=== PATIENT | female | born 1950 | race Caucasian/White ===

== ENCOUNTER → 2020-05-03 10:26 | Outpatient (CLI) | payer MEDICARE, SELFPAY ==
--- NOTE | ~2020-05-03 | XR_ITS ---
EXAMINATION: XR chest 2V EXAM DATE: 05/03/2020 10:56 INDICATION: COPD . TECHNIQUE: Frontal and lateral projections of the chest obtained and reviewed. Comparison is made to prior examination from 01/14/2019. FINDINGS: Right upper lobe, left lower lobe calcified granulomata unchanged. Moderate chronic hyperi nflation. The lungs are otherwise clear. There are no pleural effusions. The cardiomediastinal silh ouette is within normal limits. There is no pneumothorax suspected. The bones and soft tissues are unremarkable. There is aortic arteriosclerosis. IMPRESSION: 1. No acute cardiopulmonary findings. 2. Hyperinflation. Reviewed, dictated and finalized at location B. NED GLASS PAINTER
== END ==
PROVIDERS: PCP Family Medicine Adolescent Medicine; Visit Provider Family Medicine Adolescent Medicine
DX: J44.9 Chronic obstructive pulmonary disease, unspecified (principal); R91.8 Other nonspecific abnormal finding of lung field
CPT/HCPCS: 71046

== ENCOUNTER → 2021-05-15 09:48 | Outpatient (CLI) | payer MEDICARE, SELFPAY ==
--- NOTE | ~2021-05-15 | CT_ITS ---
EXAMINATION: CT lung screening EXAM DATE: 05/15/2021 10:05 INDICATION: Low dose CT lung cancer screening. TECHNIQUE: Spiral low dose CT of the chest without contrast. Axial, coronal and sagittal images were reviewed. The dose-length product (DLP) for this examination was 54.52 mGy-cm. The exposure was ta ilored according to patient size (auto mA exposure control), and iterative reconstruction (ASIR) was used as additional dose reduction technique. There is no prior study for comparison. FINDINGS: Mild emphysema. Right upper lobe and left lower lobe large calcified granulomata. 3 mm nod ule along the left major fissure, axial image 63. There are no pleural or pericardial effusions. T racheobronchial tree is patent. There is no mediastinal, hilar or axillary lymphadenopathy. There is no pneumothorax. Heart normal in size. There is mild coronary arterial calcification, arteria l sclerosis. Upper abdomen is unremarkable. There is mild thoracic spondylosis without osteoblasti c or osteolytic lesions identified. IMPRESSION: Lung-RADS category 2, benign appearance or behavior (<1% chance of malignancy); recommend continued LDCT screening in 1 year. Reviewed, dictated and finalized at location B. TION ENGINEER
== END ==
PROVIDERS: PCP Family Medicine Adolescent Medicine; Visit Provider Family Medicine Adolescent Medicine
DX: Z12.2 Encounter for screening for malignant neoplasm of respiratory organs (principal); Z87.891 Personal history of nicotine dependence
CPT/HCPCS: 71271

== ENCOUNTER → 2021-08-21 13:17 | Outpatient (CLI) | payer MEDICARE, SELFPAY ==
--- NOTE | ~2021-08-21 | XR_ITS ---
EXAMINATION: XR ankle RT min 3V EXAM DATE: 08/21/2021 13:46 INDICATION: Right ankle pain . TECHNIQUE: Right ankle frontal, lateral and oblique projections obtained and reviewed. There is no p rior study for comparison. FINDINGS: The right ankle mortise appears intact. There are no acute fractures or dislocations iden tified. There is no subcutaneous gas. The soft tissue is unremarkable. There are no radiopaque fo reign bodies. IMPRESSION: 1. Unremarkable XR ankle RT min 3V exam. Reviewed, dictated and finalized at location G. X PROGRAMMER
--- NOTE | ~2021-08-21 | DEXA_ITS ---
Bone Density Report Name: ANUJA TAMEZ Age: 71 Sex: Female Ethnicity: White Date of : 1950 Indication: osteopenia; height loss; postmenopausal Referring Provider: NORMA MONTENEGRO Study: Bone densitometry was performed. Exam Date: August 21, 2021 Accession number: [id number] Bone Density: Region BMD T-score Z-score Classification AP Spine (L1-L4) 0.833 -1.9 0.2 Osteopenia Femoral Neck (Left) 0.612 -2.1 -0.3 Osteopenia Total Hip (Left) 0.745 -1.6 0.0 Osteopenia Femoral Neck (Right) 0.641 -1.9 0.0 Osteopenia Total Hip (Right) 0.773 -1.4 0.2 Osteopenia Total Hip Mean 0.759 -1.5 0.1 Osteopenia World Health Organization criteria for BMD impression classify patients as: Normal (T-score at or above -1.0), Osteopenia (T-score between -1.0 and -2.5), or Osteoporosis (T-score at or below -2.5). 10-year Fracture Risk(1): Major Osteoporotic Fracture 13% Hip Fracture 4.2% Reported Risk Factors: [place] (), Neck BMD=0.612, BMI=27.5, smoking (1) FRAX(R) Version 3.08. Fracture probability calculated for an untreated patient. Fracture probability may be lower if the patient has received treatment. Previous Exams: Region Exam Age BMD T-score BMD Change BMD Change Date g/cm2 vs Baseline vs Previous AP Spine(L1-L4) 08/21/2021 71 0.833 -1.9 0.035* 0.010 01/14/2019 68 0.823 -2.0 0.025* 0.023 08/29/2015 65 0.800 -2.2 0.002 0.002 06/17/2013 62 0.798 -2.3 Total Hip(Left) 08/21/2021 71 0.745 -1.6 -0.066* -0.016 01/14/2019 68 0.761 -1.5 -0.050* -0.013 08/29/2015 65 0.775 -1.4 -0.037* -0.037* 06/17/2013 62 0.812 -1.1 Total Hip(Right) 08/21/2021 71 0.773 -1.4 -0.088* -0.010 01/14/2019 68 0.784 -1.3 -0.078* -0.018 08/29/2015 65 0.802 -1.1 -0.060* -0.060* 06/17/2013 62 0.861 -0.7 *Denotes significance at 95% confidence level, LSC for AP Spine = 0.022 g/cm2, LSC for Total Hip = 0.027 g/cm2 Clinical Information Provided by Patient: Smokes Patient maximum height was 63 Menopause Age: 47 No regular weight bearing exercise Drinks caffeinated beverages Onset of menses at age 13 Number of children 1 Impression: The patient has low bone mass, based on the Left Femoral Neck T-score. The patient has an estimated ten-year ris
--- NOTE | ~2021-08-21 | MM_ITS ---
EXAMINATION: MM screening [facility] BI w branden HISTORY: Screening mammogram TECHNIQUE: Craniocaudal and mediolateral oblique 3-D tomosynthesis images were obtained and synthetic 2-D images were generated. CAD analysis was submitted and interpreted. COMPARISON: 01/24/2019 diagnostic left mammogram and left complete breast ultrasound examination 01/14/2019, 11/26/2016 bilateral screening mammogram examinations BREAST PARENCHYMAL COMPOSITION: The breasts are heterogeneously dense, which may obscure small masses . FINDINGS: Right breast: Possible small stellate mass in the outer mid right breast. Diagnostic right mammogram is recommended , with ultrasound if required. Left breast: There is no evidence of suspicious mass, calcification, or architectural distortion to s uggest malignancy in either breast. There has been no suspicious interval change. IMPRESSION: 1. Possible small stellate mass in the outer mid right breast 2. Diagnostic right mammogram is recommended BI-RADS Category 0: Incomplete: Needs additional imaging evaluation. Reviewed, dictated and finalized at location A. 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
== END ==
PROVIDERS: PCP Family Medicine Adolescent Medicine; Visit Provider Family Medicine Adolescent Medicine
DX: Z12.31 Encounter for screening mammogram for malignant neoplasm of breast (principal); Z78.0 Asymptomatic menopausal state; M25.571 Pain in right ankle and joints of right foot; R92.8 Other abnormal and inconclusive findings on diagnostic imaging of breast; M85.89 Other specified disorders of bone density and structure, multiple sites
CPT/HCPCS: 73610; 77063; 77067; 77080

== ENCOUNTER → 2021-09-17 09:11 | Outpatient (CLI) | payer MEDICARE, SELFPAY ==
--- NOTE | ~2021-09-17 | MMUS_ITS ---
EXAMINATION: MM diagnostic [facility] RT w branden, US breast RT limited HISTORY: Possible small stellate mass reported in outer mid right breast on August 21, 2021 screeni ng mammogram examination TECHNIQUE: Additional 3-D tomosynthesis images of the right breast were performed and synthetic 2-D i mages were generated. CAD analysis was submitted and interpreted. High resolution upper outer and low er-outer quadrant right breast ultrasound was performed. COMPARISON: August 21, 2021 bilateral screening mammogram FINDINGS: MAMMOGRAPHIC FINDINGS: No suspicious mass, architectural distortion, malignant calcification, skin thickening or retraction is evident. ULTRASOUND: No suspicious mass or shadowing is evident. IMPRESSION: 1. No mammographic evidence of malignancy 2. Routine mammographic screening is recommended BI-RADS Category 1: Negative Reviewed, dictated and finalized at location A. IMPRESSION: 1. No mammographic evidence of malignancy 2. Routine mammographic screening is recommended BI-RADS Category 1: Negative
== END ==
PROVIDERS: PCP Family Medicine Adolescent Medicine; Visit Provider Family Medicine Adolescent Medicine
DX: R92.8 Other abnormal and inconclusive findings on diagnostic imaging of breast (principal)
CPT/HCPCS: 76642; 77061; 77065; G0279

== ENCOUNTER → 2023-01-30 11:54 | Outpatient (CLI) | payer MEDICARE, SELFPAY ==
--- NOTE | ~2023-01-30 | XR_ITS ---
Right Shoulder Technique: AP and axillary views were obtained. Clinical History: Pain Findings: No fracture or dislocation is seen. Osseous alignment is anatomic. The glenohumeral and acr omioclavicular joint spaces are preserved. Soft tissues are unremarkable. Impression: Unremarkable right shoulder radiographs. Reviewed, dictated and finalized at [facility]. Impression: Unremarkable right shoulder radiographs.
--- NOTE | ~2023-01-30 | XR_ITS ---
Left Shoulder Technique: AP and axillary views were obtained. Clinical History: Pain Findings: No fracture or dislocation is seen. Osseous alignment is anatomic. The glenohumeral and acr omioclavicular joint spaces are preserved. Soft tissues are unremarkable. Impression: Unremarkable left shoulder radiographs. Reviewed, dictated and finalized at [facility]. Impression: Unremarkable left shoulder radiographs.
== END ==
PROVIDERS: PCP Family Medicine Adolescent Medicine; Visit Provider Family Medicine Adolescent Medicine
DX: M25.512 Pain in left shoulder (principal); M25.511 Pain in right shoulder
CPT/HCPCS: 73030

== ENCOUNTER → 2023-02-06 11:23 | Outpatient (CLI) | payer MEDICARE, SELFPAY ==
--- NOTE | ~2023-02-06 | MM_ITS ---
EXAMINATION: MM screening [place] BI w branden HISTORY: Screening mammogram TECHNIQUE: Craniocaudal and mediolateral oblique 3-D tomosynthesis images were obtained and synthetic 2-D images were generated. CAD analysis was submitted and interpreted. COMPARISON: 09/17/2021, 08/21/2021, 01/24/2019, 01/14/2019 BREAST PARENCHYMAL COMPOSITION: The breasts are heterogeneously dense, which may obscure small masses . FINDINGS: No suspicious mass, calcification, or architectural distortion are identified in either shade ast to suggest malignancy. There has been no suspicious interval change. IMPRESSION: 1. No mammographic evidence of malignancy. 2. Recommend routine screening mammography in one year. BI-RADS Category 1: Negative Reviewed, dictated and finalized at location A.
== END ==
PROVIDERS: PCP Family Medicine Adolescent Medicine; Visit Provider Family Medicine Adolescent Medicine
DX: Z12.31 Encounter for screening mammogram for malignant neoplasm of breast (principal)
CPT/HCPCS: 77063; 77067

== ENCOUNTER 2023-12-07 11:46 | Outpatient (CLI) | payer MEDICARE, SELFPAY ==
--- NOTE | ~2023-12-07 | CT_ITS ---
CT Scan of the Chest without Contrast: Clinical Indication: Lung cancer screening, nicotine dependence Technique: Contiguous sections were acquired throughout the chest without intravenous contrast. Dose reduction technique was used on this scan by utilizing automated exposure control and iterative recon struction technique. The dose-length product (DLP) was 54.32 mGy-cm. COMPARISON: 05/15/2021 Findings: There is no evidence of any significant mediastinal, hilar or axillary lymphadenopathy. The mediastin al soft tissues appear normal. There is no evidence of pleural or pericardial effusion. Large calcified right upper lobe granuloma present. There is a new 1.4 cm spiculated nodule in the le ft upper lobe (axial image 34). Additional calcified left lower lobe granuloma is unchanged. Mild emp hysema. Images through the upper abdomen reveal no abnormalities. Impression: Lung RADS 4B: Very suspicious. 1.4 cm spiculated left upper lobe pulmonary nodule. Recommend tissue s ampling to establish histologic diagnosis, as neoplasm is suspected. Case discussed with Dr. Patterson at the time of this reading. Reviewed, dictated and finalized at location . Impression: Lung RADS 4B: Very suspicious. 1.4 cm spiculated left upper lobe pulmonary nodu le. Recommend tissue sampling to establish histologic diagnosis, as neoplasm is suspected. Case discussed with Dr. Patterson at the time of this reading.
== END 2023-12-07 11:47 ==
LOC: MICIMG 11:47
PROVIDERS: PCP Family Medicine Adolescent Medicine; Visit Provider Family Medicine Adolescent Medicine
DX: Z12.2 Encounter for screening for malignant neoplasm of respiratory organs (principal); Z87.891 Personal history of nicotine dependence; R91.8 Other nonspecific abnormal finding of lung field
CPT/HCPCS: 71271

== ENCOUNTER 2023-12-24 09:06 | Outpatient (CLI) | payer MEDICARE, SELFPAY ==
[2023-12-24] VITALS (11 sets, daily range): BP systolic 125–166; BP diastolic 62–90; PULSE 63–84; RESP 14–20; TEMP 36.5; O2SAT 95–100
--- NOTE | ~2023-12-24 | XR_ITS ---
EXAMINATION: XR chest 1V DATE: 12/24/2023 11:51 INDICATION: Left lung nodule status post percutaneous biopsy. TECHNIQUE: A single frontal view of the chest was obtained. COMPARISON: Chest 2 views 05/03/2020 FINDINGS: Calcified pulmonary nodules are consistent with old granulomatous disease. There are airspa ce opacities in left upper lobe. There is a small left pneumothorax. No pleural effusion. The heart s ize is normal. IMPRESSION: 1. Airspace opacities in left lung upper lobe, consistent with postbiopsy hemorrhage. 2. Small left pneumothorax. Reviewed, dictated and finalized at location A. IMPRESSION: 1. Airspace opacities in left lung upper lobe, consistent with postbiopsy hemor rhage. 2. Small left pneumothorax.
--- NOTE | ~2023-12-24 | CT_ITS ---
EXAMINATION: CT biopsy lung w/imaging DATE: 12/24/2023 12:05 INDICATION: Left lung upper lobe nodule. TECHNIQUE: The procedure including the risks, benefits, and alternatives and possibility of chest tub e placement were discussed with the patient. Risks discussed included infection, hemorrhage, approxim ately 1/3 risk of pneumothorax, approximately 1/10 risk of pneumothorax severe enough to warrant ches t tube placement, and rarely . The patient understood the risks and agreed to proceed. The patie nt was placed supine. The skin overlying the left lung was prepped and draped in sterile fashion. A nesthetic was administered with 1% lidocaine subcutaneously. A 19 gauge outer needle was advanced un sherrie CT guidance to the lesion of interest. A 20 gauge core biopsy needle was then used to obtain 2 co re biopsy specimens. The needle was removed and the entry site was cleaned and dressed. The mA was ad justed according to patient size. Iterative reconstruction technique was employed. The dose-length pr oduct was 212.29 mGy-cm. There were no immediate complications. FINDINGS: CT images demonstrate the outer needle tip adjacent to a 14 mm nodule in left lung upper lo be. IMPRESSION: 1. CT-guided core needle biopsy of a 14 mm nodule in left lung upper lobe. Reviewed, dictated and finalized at location A.
--- NOTE | ~2023-12-24 | XR_ITS ---
EXAMINATION: XR chest 1V portable DATE: 12/24/2023 14:45 INDICATION: Left lung nodule status post percutaneous biopsy. TECHNIQUE: A single frontal view of the chest was obtained. COMPARISON: Chest single view at 12:47 PM FINDINGS: There are airspace opacities in left upper lobe. Calcified pulmonary nodules are consistent with old granulomatous disease. No pleural effusion. There is a small left pneumothorax. The heart s ize is normal. IMPRESSION: 1. Stable airspace opacities in left lung upper lobe, consistent with postbiopsy hemorrhage. 2. Worsened small left pneumothorax. Reviewed, dictated and finalized at location A. IMPRESSION: 1. Stable airspace opacities in left lung upper lobe, consistent with postbiops y hemorrhage. 2. Worsened small left pneumothorax.
--- NOTE | ~2023-12-24 | XR_ITS ---
EXAMINATION: XR chest 1V portable DATE: 12/24/2023 12:50 INDICATION: Left lung nodule status post 3 days biopsy. TECHNIQUE: A single frontal view of the chest was obtained. COMPARISON: Chest single view at 11:48 AM FINDINGS: Calcified pulmonary nodules are consistent with old granulomatous disease. There are stable airspace opacities in left upper lobe. There is a small left pneumothorax. No pleural effusion. The heart size is normal. IMPRESSION: 1. Stable airspace opacities in left lung upper lobe, consistent with postbiopsy hemorrhage. 2. Worsened small left pneumothorax. Reviewed, dictated and finalized at location A. IMPRESSION: 1. Stable airspace opacities in left lung upper lobe, consistent with postbiops y hemorrhage. 2. Worsened small left pneumothorax.
[2023-12-24 09:48] LABS: Mean Platelet Volume 10.6 fl (7.4-10.4); Platelet Count Result 188 k/mm3 (150-375)
[2023-12-24 10:00] LABS: Prothrombin Time 13.3 Seconds (11.1-14.7)
--- NOTE | 2023-12-24 15:03 | SUR.PHASEII ---
Dr. Pandya at bedside. Per MD, patient okay to d/c.
== END 2023-12-24 15:34 | disposition home or self-care (01) ==
PROVIDERS: PCP Family Medicine Adolescent Medicine; Visit Provider Radiology Diagnostic Radiology
PROC: BB24ZZZ Computerized Tomography (CT Scan) of Bilateral Lungs (ICD-10-PCS; CPT 32408; principal; 2023-12-24 11:00)
DX: Z01.818 Encounter for other preprocedural examination (principal); C34.92 Malignant neoplasm of unspecified part of left bronchus or lung; R91.8 Other nonspecific abnormal finding of lung field; J93.9 Pneumothorax, unspecified
CPT/HCPCS: 32408; 36415; 71045; 85049; 85610; 88305; 88342

== ENCOUNTER 2024-07-28 10:10 | Outpatient (CLI) | payer MEDICARE, SELFPAY ==
--- NOTE | ~2024-07-28 | CT_ITS ---
EXAMINATION: CT brain wo con DATE: 07/28/2024 10:24 INDICATION: Transient ischemic attack. TECHNIQUE: Computed tomography (CT) of the head was performed without intravenous contrast. The mA wa s adjusted according to patient size. Iterative reconstruction technique was employed. The dose-lengt h product was 599.57 mGy-cm. COMPARISON: None FINDINGS: There are scattered areas of low attenuation in the cerebral white matter, which is within normal limits for the patient's age. There is no intracranial hemorrhage, acute infarction, or abnorm al intracranial mass lesion. The ventricles are normal in size. The paranasal sinuses are clear. Ther e are likely changes of ocular lens replacement surgeries. There is a small left mastoid effusion. IMPRESSION: 1. Normal aging brain. Reviewed, dictated and finalized at location A. 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 Normal aging brain.
== END 2024-07-28 10:11 | disposition home or self-care (01) ==
LOC: MICIMG 10:11
PROVIDERS: PCP Family Medicine; Visit Provider Family Medicine
DX: Z86.73 Personal history of transient ischemic attack (TIA), and cerebral infarction without residual deficits (principal)
CPT/HCPCS: 70450

== ENCOUNTER 2024-08-01 11:46 | Outpatient (CLI) | payer MEDICARE, SELFPAY ==
--- NOTE | ~2024-08-01 | DEXA_ITS ---
Bone Density Report Name: ANUJA TAMEZ Age: 74 Sex: Female Ethnicity: White Date of : 1950 Indication: postmenopausal; screening for osteoporosis; cancer; Referring Provider: IZABEL, JACQUELINE Gutierrez Study: Bone densitometry was performed. Exam Date: August 01, 2024 Accession number: [id number] Bone Density: Region BMD T-score Z-score Classification AP Spine(L1-L4) 0.845 -1.8 0.5 Osteopenia Femoral Neck (Left) 0.583 -2.4 -0.4 Osteopenia Total Hip (Left) 0.759 -1.5 0.2 Osteopenia Femoral Neck (Right) 0.631 -2.0 0.1 Osteopenia Total Hip (Right) 0.810 -1.1 0.6 Osteopenia Femoral Neck Mean 0.607 -2.2 -0.1 Osteopenia Total Hip Mean 0.785 -1.3 0.4 Osteopenia World Health Organization criteria for BMD impression classify patients as: Normal (T-score at or above -1.0), Osteopenia (T-score between -1.0 and -2.5), or Osteoporosis (T-score at or below -2.5). 10-year Fracture Risk(1): Major Osteoporotic Fracture 16% Hip Fracture 6.9% Reported Risk Factors: [place] (), Neck BMD=0.583, BMI=24.5, smoking (1) FRAX(R) Version 3.08. Fracture probability calculated for an untreated patient. Fracture probability may be lower if the patient has received treatment. Clinical Information Provided by Patient: Smokes Has the following medical conditions: Cancer Patient maximum height was 62 Menopause Age: 50 No regular weight bearing exercise Does not regularly consume dairy products Drinks caffeinated beverages Onset of menses at age 13 Number of children 1 Impression: The patient has low bone mass, based on the Left Femoral Neck T-score. The patient has risk factors, including: smoking. Discussion: BONE DENSITY IS LOW AT ONE OR MORE SKELETAL SITES. This patient's lowest T-score is low at one or more skeletal sites. It meets the World Health Organization's (WHO) criteria for ?low bone mass? (T-score between -1.0 and -2.5). The patient's 10-year risk of fracture as calculated by FRAX is less than the threshold where pharmacological therapy is recommended by the National Osteoporosis Foundation (NOF). However, all treatment decisions require clinical judgment and consideration of individual patient factors, including patient preferences, comorbidities, previous drug use, risk factors not captured in the FRAX model (e.g., frailty, falls, vitamin D deficiency, increased bone turnover, interval significant decline in bone density) and possible under or overestimation of fracture risk by FRAX. The patient should follow a healthful lifestyle (good nutrition with adequate calcium and vitamin D, and appropriate weight-bearing exercise). Follow-Up: Consider repeating this study in 2 to 3 years to reassess this patient's status, or sooner if there is some new clinical indication. Reported by: RODOLFO on 08/01/2024 12:27:00 PM. Reviewed, dictated and finalized at location A.
--- OUTSIDE RECORDS SUMMARY | 2024-08-01 12:58 | XMS_ITS | Encounter Summary ---
Author Organization [facility] Address [address] [place] [address] Phone Care Team Providers Care Nursery Supervisor Name Role Phone Darci Polanco MD Primary Care Prov ider Aden Siddiqui MD Unavailable Rae Cuellar UNHAIRING MACHINE OPERATOR Unavailable Darrian Martinez MD Unavailable Joel Almonte MD Primary Care Provider Encounter Details Date Type Department Care Team (Latest Contact Info) Description 08/27/2016 Orders Only [facility] MS Scanning, Provider Social History Tobacco Use Types Packs/Day Years Used Date Smoking Tobacco: Never Assessed Comments Unknown Sex and Gender Information Value Date Recorded Sex Assigned at Not on file Legal 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 Gender Identity Female 03/07/2020 6:08 PM CDT Sexual Orientation Not on file documented as of this encounter Plan of Treatment Not on file documented as of this encounter Procedures Procedure Name Priority Date/Time Associated Diagnosis Comments SCAN - NEUROLOGY 08/27/2016 documented in this encounter Results * SCAN - NEUROLOGY (08/27/2016) Anatomical Region Laterality Modality Other us Provider Scanning Final Result documented in this encounter Visit Diagnoses Not on filedocumented in this encounter Care Teams Nursery Supervisor Relationship Specialty Start Date End Date Darci Polanco MD PCP - General Family Medicine 12/29/18 07/24/24 Joel Almonte MD [address] [place] [address] PCP - General Family Medicine 07/25/24 Aden Siddiqui MD [address] DEPT OPHTHALMOLOGY, [facility] [address] [place] [address] Surgeon Ophthalmology 08/07/23 Rae Cuellar NP [address] [facility] [address] [place] [address] Nurse Practitioner Nurse Practitioner 07/06/24 Darrian Martinez MD [id number] [place] [address] Referring Physician Thoracic Surgery 07/06/24 documented as of this encounter
--- OUTSIDE RECORDS SUMMARY | 2024-08-01 12:59 | XMS_ITS | Referral Summary ---
Author Organization [facility] Address [address] [place] [address] Care Team Providers Care Desk Manager Name Role Phone Darci Polanco MD Primary Care Provider + Source Comments [facility],non-owned Affiliates and Associated Physician Practices is amultiple site organization consisting of ambulatory clinics and hospital sitesin [place], [place], [place] and [place]. This disclosure is being madepursuant to the Care Everywhere program and may not contain all information available regarding this patient. Last updated 18.[facility] Allergies Active Allergy Reactions Criticality Noted Date Comments Erythromycin Rash Medium Medications * Be aware that medications may not be up to date on this document. Alwaysverify current medications with the patient. Medication Sig Dispensed Refills Start Date End Date Status betamethasone dipropionate (DIPROSONE) 0.05 % ointment 1 10/02/2017 Active buPROPion SR 12hr (WELLBUTRIN-SR) 150 MG tablet Take 150 mg by mouth 09/28/2017 Active clonazePAM (KLONOPIN) 1 MG tablet Take 1 mg by mouth nightly as needed 08/06/2017 Active DULoxetine (CYMBALTA) 60 MG capsule Take 60 mg by mouth once daily Active FLUAD 0.5 ML ALISSA injection ADM 0.5ML IM UTD 0 05/13/2018 Active polyethylene glycol 3350 (MIRALAX) powder Use entire 255g bottle with 64oz of clear liquid as directed for colonoscopy prep. 08/08/2016 Active Active Problems Problem Noted Date Diagnosed Date Depression 10/16/2017 Chronic hepatitis C without hepatic coma 018 Overview (12/10/2017): 10/13/17 Fibroscan CAP 200, E 4.9 kPa Genotype 1a Concussion 06/29/2014 Social History Tobacco Use Types Packs/Day Years Used Date Smoking Tobacco: Every Day Cigarettes 1 35 Smokeless Tobacco: Never Tobacco Cessation:Ready to Q uit: No; Counseling Given: Yes Alcohol Use Standard Drinks/Week Comments No 0 (1 standard drink = 0.6 oz pur e alcohol) SELDOM Sex and Gender Information Value Date Recorded Sex Assigned at Not on file Gender Identity Not on file Sexual Orientation Not on file Last Filed Vital Signs Vital Sign Reading Time Taken Comments Blood Pressure 103/79 09/03/2018 10:22 AM SUPERVISOR MALT HOUSE Pulse 70 09/03/2018 10:22 AM SUPERVISOR MALT HOUSE Temperature 36.6 ??C (97.9 ??F) 09/03/2018 1 0:22 AM SUPERVISOR MALT HOUSE Respiratory Rate 18 09/03/2018 10:2 2 AM SUPERVISOR MALT HOUSE Oxygen Saturation 100% 09/03/2018 10: 22 AM SUPERVISOR MALT HOUSE Inhaled Oxygen Concentration - - Weight 62.6 kg (137 lb 14.4 oz) 019 10:22 AM SUPERVISOR MALT HOUSE Height 157.5 cm (5' 2 ) 09/03/2018 10:2 2 AM SUPERVISOR MALT HOUSE Body Mass Index 25.22 09/03/2018 10:22 AM SUPERVISOR MALT HOUSE Plan of Treatment Not on file Procedures Procedure Name Priority Date/Time Associated Diagnosis Comments COMPREHENSIVE METABOLIC PANEL Routine 09/07/2018 10:34 AM CDT Chronic hepatitis C without hepatic coma (HCC) HEPATITIS C RNA QUANTITATIVE Routine 09/07/2018 10:34 AM CDT Chronic hepatitis C without hepatic coma (HCC) from Last 3 Months or Most Recently Relevant to Health Maintenance Results * HEPATITIS C RNA QUANTITATIVE (09/07/2018 10:34 AM CDT) Hepatitis C Virus RNA, Quantitative Real Time PCR <15 NOT DETECTED NOT DETECTED IU/mL [facility] Hepatitis C Virus RNA, Quantitative Real Time PCR <1.18 NOT DETECTED NOT DETECTED Log IU/mL [facility] See Note [facility] Comment: This test was performed using Real-Time Polymerase Chain Reaction. Reportable Range: 15 IU/mL to 100,000,000 IU/mL (1.18 Log IU/mL to 8.00 Log IU/mL). ?? The analytical performance characteristics of this assay have been determined by [employer]. The modifications have not been cleared or approved by the FDA. This assay has been validated pursuant to the CLIA regulations and is used for clinical purposes. ?? For more information on this test, go to: http://education.GoodData/faq/OSO16e2 (This link is being provided for informational/ educational purposes only.) Test Performed at: [employer] [facility] [address] [place], [place] ??[phone] BRIT COELLO DO,MPH Blood BLOOD SPECIMEN / Unknown 09/07/2018 10:34 AM CDT 09/08/2018 4:26 AM CDT Chitra Mccloud FLOORING MECHANIC-DRUM SANDER OFFBEARER LAB - CHEMIS TRY ORDERABLES Performing Organization Address City/State/[facility] Co de Phone Number [facility] [address] [place] [address] * COMPREHENSIVE METABOLIC PANEL (09/07/2018 10:34 AM CDT) Glucose 93 65 - 99 mg/dL [facility] Comment: ? Fasting reference interval BUN 16 7 - 25 mg/dL [facility] Creatinine 0.87 0.50 - 0.99 mg/dL [facility] Comment: For patients >49 years of age, the reference limit for Creatinine is approximately 13% higher for people identified as -[place] Islander. eGFR by MDRD 68 > OR = 60 mL/min/1 .73m2 [facility] eGFR by MDRD 79 > OR = 60 mL/min/1 .73m2 [facility] BUN/Creatinine Ratio NOT APPLICABLE 6 - 22 (calc) [facility] Sodium 141 135 - 146 mmol/L [facility] Potassium 4.2 3.5 - 5.3 mmol/L [facility] Chloride 106 98 - 110 mmol/L [facility] CO2 29 20 - 32 mmol/L [facility] Calcium 9.2 8.6 - 10.4 mg/dL [facility] Protein Total 7.4 6.1 - 8.1 g/dL [facility] Albumin 3.9 3.6 - 5.1 g/dL [facility] Globulin Total 3.5 1.9 - 3.7 g/dL (calc) [facility] Albumin/Globulin Ratio 1.1 1.0 - 2.5 (calc) [facility] Bilirubin Total 0.6 0.2 - 1.2 mg/dL [facility] Alkaline Phosphatase 76 33 - 130 U/L [facility] AST 29 10 - 35 U/L [facility] ALT 16 6 - 29 U/L [facility] Comment: Test Performed at: [employer] [facility] [address] [place] [address] ??[id number] BRIT COELLO DO,MPH Blood BLOOD SPECIMEN / Unknown 09/07/2018 10:34 AM CDT 09/08/2018 4:26 AM CDT Chitra Mccloud FLOORING MECHANIC-DRUM SANDER OFFBEARER LAB - CHEMIS TRY ORDERABLES [facility] [address] [place] [address] from Last 3 Months or Most Recently Relevant to Health Maintenance Care Teams Desk Manager Relationship Specialty Start Date End Date Darci Polanco MD [address] [place] [id number] PCP - General 10/13/17
--- OUTSIDE RECORDS SUMMARY | 2024-08-01 12:59 | XMS_ITS ---
Author Organization [facility] Address [address] [place] [address] Care Team Providers Care Transcription Name Role Phone DeysichAden MD Unavailable Rae Cuellar NP Unavailable Darrian Martinez MD Unavailable Joel Almonte MD Primary Care Provider Active Problems Problem Noted Date Diagnosed Date Encounter for medical examination to establish c are 07/06/2024 Assessment & Plan (07/06/2024 8:51 AM OIL FIELD ROUSTABOUT): A(n) initial visit to establish care has been performed today. Soniya Duggan is not up to date on screening tests. She is in need of DEXA, Colon cancer screening, and Cholesterol screening. She is up to date on needed preventative vaccinations. We discussed healthy lifestyle habits, educational material has been given. Medications reviewed, changes documented as per the medical record and discussed with patient along with risks vs benefits. Specific topics reviewed: drugs, ETOH, and tobacco, importance of regular dental care, importance of regular exercise, importance of varied diet, limit TV, media violence, minimize junk food, and seat belts. Return in 3 months History of TIA (transient ischemic attack) 07/06 Tremor 07/06/2024 Hypertension, essential 07/06/2024 Hypoxia 02/25/2024 Assessment & Plan (02/25/2024 2:04 PM CDT): AB.49/36/65 - 2L NC applied - monitor mental and respiratory status Atrial fibrillation with rap id ventricular response (CMS/HCC) 02/24/2024 Assessment & Plan (02/26/2024 1:51 PM CDT): Run of afib with RVR 02/23 AM - converted as Amio bolus started - received total of Amio bolus - monitor on tele - low dose BB started - lytes repleted Crepitus of chest 02/24/2024 Assessment & Plan (02/28/2024 8:43 PM CDT): Chest tube disconnected from [facility] 02/23 causing substantial subcut air - CXR shows chest tube remains in place and lung well expanded - substantial subcut air continued - s/p reexploration thoracotomy 02/25, additional chest tube placed - subcut air resolved Post-op pain 02/19/2024 Assessment & Plan (02/28/2024 8:24 AM CDT): APAP 1g q6h, oxycodone 5mg q4h PRN Acute pain team consult - dc epidural as became disconnected - dc dPCA due to lingering drowsiness - dc gabapentin, robaxin 2/2 confusion Nodule of left lung 02/18/2024 Lung nodule 02/12/2024 Assessment & Plan (02/29/2024 10:24 AM CDT): - CT x2 to -20mmHg, no leak. Split on 02/27. 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 - s/p bronch 02/22 shows mucous plugging, no BPF - s/p reexploration thoracotomy 02/25, additional chest tube placed Malignant neoplasm of lung 01/06/2024 Dermatochalasis of both upper eyelids 05/15/2023 Loss of peripheral visual field, bilateral 05/15 Depression 02/04/2019 Anxiety disorder 02/04/2019 COPD (chronic obstructive pulmonary disease) 02/2019 Assessment & Plan (02/28/2024 8:20 AM CDT): - cont inhalers - wean O2 as tolerated - pulm toileting - conts to smoke Chronic hepatitis C without hepatic coma (CMS/HC C) 10/01/2017 Overview (07/06/2024): 10/13/17 Fibroscan CAP 200, E 4.9 kPa Genotype 1a Concussion 06/29/2014 Current Oncology Plans No current plan information found. Past Plans No past plan information found. Radiation Treatments * No radiation treatments are documented for this patient in [facility]. Treatments may have been administered in another system. Lifetime Dose Tracking * Chemical Lifetime Dose Automatic Entry Manual Entr y DLP 545 mGycm 545 mGycm 0 mGycm
--- OUTSIDE RECORDS SUMMARY | 2024-08-01 12:59 | XMS_ITS | Patient Health Summary ---
Author Organization [facility] Address [address] [place] [address] Care Team Providers Care Border Measurer And Cutter Name Role Phone Darci Polanco MD Primary Care Provider + Note from [facility],non-owned Affiliates and Associated Physician Practices is amultiple site organization consisting of ambulatory clinics and hospital sitesin [place], [place], [place] and [place]. This disclosure is being madepursuant to the Care Everywhere program and may not contain all information available regarding this patient. Last updated 18.[facility] Allergies * Erythromycin(Rash) -Medium Criticality Medications * Be aware that medications may not be up to date on this document. Alwaysverify current medications with the patient. * betamethasone dipropionate (DIPROSONE) 0.05 % ointment(Started 10/02/2017) 1 refill left * buPROPion SR 12hr (WELLBUTRIN-SR) 150 MG tablet(Started 09/28/2017) Take 150 mg by mouth * clonazePAM (KLONOPIN) 1 MG tablet(Started 08/06/2017) Take 1 mg by mouth nightly as needed * DULoxetine (CYMBALTA) 60 MG capsule Take 60 mg by mouth once daily * FLUAD 0.5 ML ALISSA injection(Started 05/13/2018) ADM 0.5ML IM UTD * polyethylene glycol 3350 (MIRALAX) powder(Started 08/08/2016) Use entire 255g bottle with 64oz of clear liquid as directed for colonoscopy prep. Active Problems Problem Noted Date Diagnosed Date Depression 10/16/2017 Chronic hepatitis C without hepatic coma 018 Concussion 06/29/2014 Social History Tobacco Use Types [...] Comments Blood Pressure 103/79 09/03/2018 10:22 AM BACK TACKER Pulse 70 09/03/2018 10:22 AM BACK TACKER Temperature 36.6 ??C (97.9 ??F) 09/03/2018 1 0:22 AM BACK TACKER Respiratory Rate 18 09/03/2018 10:2 2 AM BACK TACKER Oxygen Saturation 100% 09/03/2018 10: 22 AM BACK TACKER Inhaled Oxygen Concentration - - Weight 62.6 kg (137 lb 14.4 oz) 019 10:22 AM BACK TACKER Height 157.5 cm (5' 2 ) 09/03/2018 10:2 2 AM BACK TACKER Body Mass Index 25.22 09/03/2018 10:22 AM BACK TACKER Procedures * COMPREHENSIVE METABOLIC PANEL(Performed 09/07/2018) Performed for Chronic hepatitis C without hepatic coma (HCC) * CBC W AUTO DIFFERENTIAL(Performed 09/07/2018) Performed for Chronic hepatitis C without hepatic coma (HCC) * HEPATITIS C RNA QUANTITATIVE(Performed 09/07/2018) Performed for Chronic hepatitis C without hepatic coma (HCC) * HEPATITIS C RNA QUANTITATIVE(Performed 04/13/2018) Performed for Chronic hepatitis C without hepatic coma (HCC) * COMPREHENSIVE METABOLIC PANEL(Performed 04/13/2018) Performed for Chronic hepatitis C without hepatic coma (HCC) * CBC W AUTO DIFFERENTIAL(Performed 04/13/2018) Performed for Chronic hepatitis C without hepatic coma (HCC) * COMPREHENSIVE METABOLIC PANEL(Performed 02/12/2018) * CBC W AUTO DIFFERENTIAL(Performed 02/12/2018) * HEPATITIS C RNA QUANTITATIVE(Performed 02/12/2018) * HEPATITIS C GENOTYPE(Performed 12/11/2017) Performed for Chronic hepatitis C without hepatic coma (HCC) * AK LIVER ELASTOGRAPHY(Performed 10/16/2017) Performed for Chronic hepatitis C without hepatic coma (HCC) * CBC W AUTO DIFFERENTIAL(Performed 10/01/2017) * HEPATITIS B CORE ANTIBODY TOTAL(Performed 10/01/2017) * PT-INR [facility](Performed 10/01/2017) * COMPREHENSIVE METABOLIC PANEL(Performed 10/01/2017) * HEPATITIS B SURFACE ANTIBODY QUANT(Performed 10/01/2017) * HEPATITIS C RNA QUANTITATIVE(Performed 10/01/2017) * HEPATITIS A ANTIBODY(Performed 10/01/2017) * CBC W AUTO DIFFERENTIAL(Performed 10/01/2017) * COMPREHENSIVE METABOLIC PANEL(Performed 10/11/2012) * CBC W AUTO DIFFERENTIAL(Performed 10/11/2012) Results * HEPATITIS C RNA QUANTITATIVE (09/07/2018 10:34 AM CDT) Only the most recent of4 resultswithin the time period is included. Pathologist [facility] Hepatitis C Virus RNA, Quantitative Real Time [...] of this assay have been determined by [facility]. The modifications have not been cleared or approved by the FDA. This assay has been validated pursuant to the CLIA regulations and is used for clinical purposes. ?? For more information on this test, go to: http://education.PercuVision/faq/NVE38r9 (This link is being provided for informational/ educational purposes only.) Test Performed at: [facility] [id number] [place] [address] ??[phone] BRIT COELLO DO,MPH Blood BLOOD SPECIMEN / Unknown 09/07/2018 10:34 AM CDT 09/08/2018 4:26 AM CDT Chitra Mccloud SECONDARY ART TEACHER-BATTERBOARD SETTER LAB - CHEMIS TRY ORDERABLES [facility] [address] [place] [address] * (ABNORMAL) CBC WITH DIFFERENTIAL (09/07/2018 10:34 AM CDT) Only the most recent of6 resultswithin the time period is included. Pathologist [facility] White Blood Cell Count 4.4 3.8 - 10.8 Thousand/u L [facility] RBC 4.04 3.80 - 5.10 Million/uL [facility] Hemoglobin 13.1 11.7 - 15.5 g/dL [facility] Hematocrit 38.6 35.0 - 45.0 % [facility] MCV 95.5 80.0 - 100.0 fL [facility] MCH 32.4 27.0 - 33.0 pg [facility] MCHC 33.9 32.0 - 36.0 g/dL [facility] RDW 12.8 11.0 - 15.0 % [facility] Platelet Count 210 140 - 400 Thousand/u L [facility] MPV 11.3 7.5 - 12.5 fL [facility] Neutrophil Absolute 1470(L) 1500 - 7800 cells/uL [facility] Lymphocytes Absolute 1544 850 - 3900 cells/uL [facility] Absolute Monocytes 365 200 - 950 cells/uL [facility] Eosinophils Absolute 972(H) 15 - 500 cells/uL [facility] Basophils Absolute 48 0 - 200 cells/uL [facility] Granulocytes % 33.4 % [facility] Lymphocytes % 35.1 % [facility] Monocytes % 8.3 % [facility] Eosinophils % 22.1 % [facility] Basophils % 1.1 % [facility] Comment: Test Performed at: [facility] ??[phone] BRIT COELLO DO,MPH Blood BLOOD SPECIMEN / Unknown 09/07/2018 10:34 AM CDT 09/08/2018 4:26 AM CDT Chitra Mccloud SECONDARY ART TEACHER-BATTERBOARD SETTER LAB - HEMATO LOGY ORDERABLES [facility] [address] [place] [address] * COMPREHENSIVE METABOLIC PANEL (09/07/2018 10:34 AM CDT) Only the most recent of5 resultswithin the time period is included. [facility] Glucose 93 65 - 99 mg/dL [facility] Comment: ? Fasting reference interval BUN 16 7 - 25 mg/dL [facility] Creatinine 0.87 0.50 - 0.99 mg/dL [facility] Comment: For patients >49 years of age, the reference limit for Creatinine is approximately 13% higher for people identified as -Guatem[place]. eGFR by MDRD 68 > OR = [...] 29 U/L [facility] Comment: Test Performed at: [facility] [address] [place], [place] ??[phone] BRIT COELLO DO,MPH Blood BLOOD SPECIMEN / Unknown 09/07/2018 10:34 AM CDT 09/08/2018 4:26 AM CDT Chitra Mccloud SECONDARY ART TEACHER-BATTERBOARD SETTER LAB - CHEMIS TRY ORDERABLES [facility] [address] [place] [address] * HEPATITIS C GENOTYPE (12/11/2017 10:10 AM CDT) Hepatitis C Virus Genotype LIPA 1a [facility] Comment: The method used in this test is RT-PCR and reverse hybridization (Line Probe) of the 5' UTR and core region of the HCV genome. The analytical performance characteristics of this assay have been determined by [employer]. The modifications have not been cleared or approved by the FDA. This assay has been validated pursuant to the CLIA regulations and is used for clinical purposes. For additional information, please refer to http://education.TRUSTe.Redapt /faq/HCVGenotyping (This link id being provided for informational/ educational purposes only.) Test Performed at: [facility] [address] [place], [place] ??[phone] Rosario GARLAND Blood BLOOD SPECIMEN / Unknown 12/11/2017 10:10 AM CDT 12/11/2017 10:10 AM CDT Chitra Mccloud SECONDARY ART TEACHER-BATTERBOARD SETTER LAB - CHEMIS TRY ORDERABLES [facility] [address] [place] [address] * AK LIVER ELASTOGRAPHY (10/16/2017 3:26 PM CDT) Narrative Mor Ta MD - 10/16/2017 3:26 PM CDT Mor Ta MD ? 10/16/2017 ??3:26 PM Diagnosis: Hepatitis C RN verified patient not , no implanted devices and NPO for prior 3 hours. Vital signs taken, procedure explained and consent signed. Date of Exam: 10/13/2017 Liver Stiffness: (E, kPa) median: ??4.9 IQR (interquartile range): ?? 0.7 IQR/Median% (ideally < 30%): ??14 CAP (controlled attenuation parameter): ??200 Technical Difficulty: None Ordering Provider: Chitra Mccloud SENIOR CREDIT OFFICER Phone Fax Fibroscan interpretation: I have personally reviewed the Fibroscan report and associated tracings. The calculated liver stiffness (E, kPa) indicates that: The probability of advanced liver fibrosis is: low. The loss of ultrasound signal, (controlled attenuation parameter, CAP [dB/m]), indicates that the probability of hepatic steatosis is: low. Mor Ta MD The following criteria are used to indicate the probability of advanced (stage 3-4) fibrosis: < 7.0 kPa: low 7.0-8.9 kPa: low to moderate 9.0-14.9 kPa: moderate 15-20 kPa: high > 20 kPa: very high Liver stiffness > 20 kPa is also associated with a high probability of complications of portal hypertension including varices and ascites. Liver stiffness > 50 kPa is associated with a high risk of variceal bleeding. Note: Liver stiffness is increased by factors other than fibrosis including passive congestion, infiltrative processes, active alcoholism, biliary obstruction and marked inflammation. The interpretation of the Fibroscan result provided above may not have taken such factors into account. Disease etiology also influences Fibroscan cutoff values for fibrosis stages and the following cutoffs have been proposed (Marline et al, Clin Gastro Hepatol 2015; 13:27-36): Cutoffs for Stage 3 and Stage 4 fibrosis respectively: Hepatitis B: >9 and >11.7 kPa Hepatitis C: >9.5 and >12.5 kPa HCV-HIV: >11 and >14 kPa Cholestatic liver diseases: >10 and >17.9 kPa NAFLD/FERRER: >10 and >14 kPa CAP estimates of steatosis: normal <200 dB/m maybe present 200 to 250 dB/m moderate 250-300 dB/m substantial > 300 dB/m (Note that Fibroscan is not a quantitative measure of liver fat and the risk of NAFLD progression is unrelated to the degree of steatosis.) These criteria are estimates and may change as additional supporting data becomes available. http://[email or web address].com/tex-xwbfxnvv-aghgisqeqx Chitra Mccloud SECONDARY ART TEACHER-BATTERBOARD SETTER PROCEDURE/WA NOR SURGICAL ORDERABLES * PT-INR [facility] (10/01/2017 3:07 PM CDT) PT 13.2 12.1 - 14.8 Seconds [facility] INR 1.0 See Comment [facility] Comment: Suggested therapeutic range for low-intensity coumadin therapy for venous thromboembolism prophylaxis is an INR of 2.0-3.0. ??For high risk patients (Mitral Valve Prosthesis, Atrial Fibrillation, history of TIA/stroke), suggested prophylactic therapeutic range is an INR of 2.5-3.5. Blood specimen (specimen) BLOOD SPECIMEN / Unknown 10/01/2017 3:07 PM CDT 10/01/2017 3:18 PM CDT Narrative [facility] - 10/01/2017 3:34 PM CDT Is patient on Heparin, Argatroban or Dabigatran?->N Chitra Mccloud APRN-BATTERBOARD SETTER LAB - COAGUL ATION ORDERABLES [facility] [address] [place] [address] * HEPATITIS B SURFACE ANTIBODY QUANT (10/01/2017 3:07 PM CDT) Hepatitis B Virus Surface Antibody <3.10 IU/L [facility] ([facility]) Comment: The anti-HBs is less than 10 IU/L and is therefore negative. There is no evidence of recovery from hepatitis B infection or evidence of antibody response to HBV vaccination. An anti-HBs result greater than or equal to 10 IU/L implies immunity. For post-vaccination antibody testing guidelines for the general public refer to MMWR June 20, 2005/Vol. 54(No. 16);07-21, and for healthcare workers refer to MMWR June 17, 2013/Vol. 62(No. 10);07-17. Reference Interval: anti-HBs 9.99 IU/L or less ....... Negative 10.00 IU/L or greater .... Positive Results greater than 1,000.00 IU/L are reported as greater than 1,000.00 IU/L. This assay should not be used for blood donor screening, associated re-entry protocols, or for screening Human Cell, Tissues and Cellular and Tissue-Based Products (HCT/P). Performed by [facility], [address] [place] [address] [email or web address], Cade Lemus MD, Lab. Director Blood specimen (specimen) BLOOD SPECIMEN / Unknown 10/01/2017 3:07 PM CDT 10/01/2017 3:22 PM CDT Chitra Mccloud SECONDARY ART TEACHER-BATTERBOARD SETTER LAB - [place] GY ORDERABLES [facility]) [address] [place] [address], [facility] * HEPATITIS B CORE ANTIBODY (10/01/2017 3:07 PM CDT) HBc Antibody Total Non-reacti ve Non-reacti ve [facility] Blood specimen (specimen) BLOOD SPECIMEN / Unknown 10/01/2017 3:07 PM CDT 10/01/2017 3:24 PM CDT Chitra Mccloud SECONDARY ART TEACHER-BATTERBOARD SETTER LAB - CHEMIS TRY ORDERABLES Performing Organization Address City/[facility]/ZIP Co de Phone Number [address] [phone] * (ABNORMAL) HEPATITIS A ANTIBODY (10/01/2017 3:07 PM CDT) Hepatitis A Virus Antibody Total Positive(A ) Negative [facility] ([facility]) Blood specimen (specimen) 10/01/2017 3:07 PM CDT 10/01/2017 3:23 PM CDT Narrative [facility] ([facility]) - 10/02/2017 7:16 AM CDT Performed at: ??01 - [facility] [address] [place], [place] ??[phone] Historic Preservationist: Abner Casper PhD, Phone: ??[phone] Chitra Mccloud SECONDARY ART TEACHER-BATTERBOARD SETTER LAB - CHEMIS TRY ORDERABLES Performing Organization Address City/[facility] Co de Phone Number [facility] ([facility]) [address] [place] [address] Care Teams Border Measurer And Cutter Relationship Specialty Start Date End Date Darci Polanco MD [address] [place] [id number] PCP - General 10/13/17
--- OUTSIDE RECORDS SUMMARY | 2024-08-01 12:59 | XMS_ITS | Clinical Summary ---
Author Organization [facility] Address [address] [place] [address] Care Team Providers Care Car Distributor Name Role Phone Darci Polanco MD Primary Care Provider + Source Comments [facility],non-owned Affiliates and Associated Physician Practices is amultiple site organization consisting of ambulatory clinics and hospital sitesin [place], [place], [place] and [place]. This disclosure is being madepursuant to the Care Everywhere program and may not contain all information available regarding this patient. Last updated 18.[facility] Allergies Active Allergy Reactions Criticality Noted Date [...] Comments Blood Pressure 103/79 09/03/2018 10:22 AM TRAFFIC RATE ANALYST Pulse 70 09/03/2018 10:22 AM TRAFFIC RATE ANALYST Temperature 36.6 ??C (97.9 ??F) 09/03/2018 1 0:22 AM TRAFFIC RATE ANALYST Respiratory Rate 18 09/03/2018 10:2 2 AM TRAFFIC RATE ANALYST Oxygen Saturation 100% 09/03/2018 10: 22 AM TRAFFIC RATE ANALYST Inhaled Oxygen Concentration - - Weight 62.6 kg (137 lb 14.4 oz) 019 10:22 AM TRAFFIC RATE ANALYST Height 157.5 cm (5' 2 ) 09/03/2018 10:2 2 AM TRAFFIC RATE ANALYST Body Mass Index 25.22 09/03/2018 10:22 AM TRAFFIC RATE ANALYST Plan of Treatment Health Maintenance Due Date Last Done Comments BONE DENSITY TESTING 1950 COLOGUARD (AGES 45-75) - COLON CA SCREENING 1950 COLON MONITORING 1950 COLONOSCOPY - COLON CA SCREENING 1950 CT COLONOGRAPHY - COLON CA SCREENING 1950 Colorectal Cancer Screening 1950 FIT - COLON CA SCREENING 1950 FLEX SIG - COLON CA SCREENING 1950 LIPID TESTING 1950 MAMMOGRAM 1950 MEDICARE AWV ? 12 MONTHS 1950 DTAP/TDAP/TD VACCINES (1 - Tdap) 1969 PNEUMOCOCCAL VACCINE 50+ (1 of 2 - PCV) 1969 LUNG CANCER SCREENING 2000 ZOSTER VACCINE (1 of 2) 2000 HEPATITIS B VACCINE (1 of 3 - Risk 3-dose series) 2010 Respiratory Syncytial Virus (RSV) Vaccine Pt: or over 60 yrs (1 - Risk 60-74 years 1-dose series) 2010 SCREENING FOR DIABETES 09/07/2021 9, 04/13/2018, 02/12/2018, Additional history exists COVID-19 VACCINE ( season) 2024 INFLUENZA VACCINE (#1) 2024 DEPRESSION SCREENING 06/29/2024 HEPATITIS C SCREENING Completed 09/07/2018 , 09/03/2018, 04/13/2018, Additional history exists HIB VACCINE Aged Out No longer eligi ble based on patient's age to complete this topic HPV VACCINE Aged Out No longer eligi ble based on patient's age to complete this topic MENINGOCOCCAL (Group B) VACCINE Aged Out No longer eligible based on patient's age to complete this topic MENINGOCOCCAL VACCINE Aged Out No cynthia rubia eligible based on patient's age to complete this topic Procedures Procedure Name Priority Date/Time Associated Diagnosis Comments COMPREHENSIVE METABOLIC PANEL Routine 09/07/2018 10:34 AM CDT Chronic hepatitis C without hepatic coma (HCC) HEPATITIS C RNA QUANTITATIVE Routine 09/07/2018 10:34 AM CDT Chronic hepatitis C without hepatic coma (HCC) from Last 3 Months or Most Recently Relevant to Health Maintenance Results * HEPATITIS C RNA QUANTITATIVE (09/07/2018 10:34 AM CDT) Pathologist [facility] Hepatitis C Virus RNA, Quantitative Real Time [...] of this assay have been determined by [employer] The modifications have not been cleared or approved by the FDA. This assay has been validated pursuant to the CLIA regulations and is used for clinical purposes. ?? For more information on this test, go to: http://education.Tripwire/faq/YHZ43f8 (This link is being provided for informational/ educational purposes only.) Test Performed at: [facility] [address] [place], [place] ??[phone] BRIT COELLO DO,MPH Blood BLOOD SPECIMEN / Unknown 09/07/2018 10:34 AM CDT 09/08/2018 4:26 AM CDT Chitra Ponce Mccloud BLANKET FOLDER-CYBER INCIDENT RESPONDER LAB - CHEMIS TRY ORDERABLES [facility] [address] [place] [address] * COMPREHENSIVE METABOLIC PANEL (09/07/2018 10:34 AM CDT) Glucose 93 65 - 99 mg/dL [facility] Comment: ? Fasting reference interval BUN 16 7 - 25 mg/dL [facility] Creatinine 0.87 0.50 - 0.99 mg/dL [facility] Comment: For patients >49 years of age, the reference limit for Creatinine is approximately 13% higher for people identified as -Australian. eGFR by MDRD 68 > OR = [...] 29 U/L [facility] Comment: Test Performed at: [facility] [address] [place], [place] ??[phone] BRIT COELLO DO,MPH Blood BLOOD SPECIMEN / Unknown 09/07/2018 10:34 AM CDT 09/08/2018 4:26 AM CDT Chitra Mccloud BLANKET FOLDER-CYBER INCIDENT RESPONDER LAB - CHEMIS TRY ORDERABLES [facility] [address] [place] [address] from Last 3 Months or Most Recently Relevant to Health Maintenance Care Teams Car Distributor Relationship Specialty Start Date End Date Darci Polanco MD [address] [address] [place] [address] PCP - General 10/13/17
--- OUTSIDE RECORDS SUMMARY | 2024-08-01 12:59 | XMS_ITS | Clinical Summary ---
Author Organization [facility] Address [address], [facility] [address] [place] [address] Phone Care Team Providers Care Used Car Sales Manager Name Role Phone Darci Polanco MD Primary Care Provider + Medications polyethylene glycol (MIRALAX) Powder Use entire 255g bottle with 64oz of clear liquid as directed for colonoscopy prep. 255 g 0 7 Active Social History Tobacco Use Types Packs/Day Years Used Date Smoking Tobacco: Never Assessed Comments Unknown Sex and Gender Information Value Date Recorded Sex Assigned at Not on file Legal Sex Female 2:51 PM [employer] Gender Identity Not on file Sexual Orientation Not on file Plan of Treatment Health Maintenance Due Date Last Done Comments DEXA Bone Density 1950 Hepatitis C Virus (HCV) Screening 1950 TdaP Immunization 1950 Cologuard 2000 Immunochemical Fecal Occult Blood 2000 Mammogram 2000 Pneumococcal Immunization (5 0+ years) (1 of 1 - PCV) 2000 Zoster Immunization (1 of 2) 2000 Colonoscopy 12/04/2021 12/04/2016 Colorectal Cancer Screening 12/04/2021 Influenza Immunization (#1) 2024 SARS-COV-2 Immunization ( - season) 2024 Respiratory Syncytial Virus (RSV) Immunization (Adult) (1 - 1-dose 75+ series) 2025 12/04/2016 Hepatitis B Immunization Aged Out No longer eligible based on patient's age to complete this topic Meningococcal Immunization (ACWY) Aged Out No longer eligible based on patient's age to complete this topic Rotavirus Immunization Aged Out No lo nger eligible based on patient's age to complete this topic Procedures Procedure Name Priority Date/Time Associated Diagnosis Comments COLONOSCOPY Routine 12/04/2016 from Last 3 Months or Most Recently Relevant to Health Maintenance Results * COLONOSCOPY (12/04/2016) Darci Polanco MD PROCEDURE/MINOR SURGICAL ORDERABLES Final Result from Last 3 Months or Most Recently Relevant to Health Maintenance Insurance MEDICARE [employer] GENERIC Care Teams Used Car Sales Manager Relationship Specialty Start Date End Date Darci Polanco MD [address] [place] [address] PCP - General Family Medicine 12/10/16
--- OUTSIDE RECORDS SUMMARY | 2024-08-01 12:59 | XMS_ITS | Clinical Summary ---
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) Take 1 tablet (81 mg total) by mouth every morning Active multivitamin capsuleIndications :Vitamin Deficiency Prevention Take 1 capsule by mouth every morning Active diclofenac DR (VOLTAREN) 75 mg EC tabletIndications: Osteoarthritis Take 1 tablet (75 mg total) by mouth 2 (two) times a day 023 Active atorvastatin (LIPITOR) 40 mg tabletIndications: hyperlipidemia Take 1 tablet (40 mg total) by mouth nightly 023 Active cyclobenzaprine (FLEXERIL) 10 mg tabletIndications: Muscle Spasm,teeth grinding Take 1 tablet (10 mg total) by mouth nightly 020 Active tiotropium-olodate roL (Stiolto Respimat) 2.5-2.5 mcg/actuation inhalerIndications :Bronchospasm Prevention with COPD Inhale 2 puffs every morning 021 Active lisinopriL (PRINIVIL,ZESTRIL) 10 mg tabletIndications: hypertension Take 1 tablet (10 mg total) by mouth every morning Active buPROPion XL (WELLBUTRIN XL) 150 mg 24 hr tablet Take 1 tablet by mouth once daily 30 tablet [address] (PROTONIX) 40 mg EC tabletIndications: Treatment of Non-Bleeding Gastric Disorder Take 1 tablet (40 mg total) by mouth early childhood education specialist before breakfast Active albuterol HFA (PROVENTIL HFA,VENTOLIN HFA,PROAIR HFA) 90 mcg/actuation inhalerIndications :Chronic Obstructive Pulmonary Disease Inhale 2 puffs 4 (four) times a day Active thiamine (VITAMIN B1) 100 mg tablet Take 1 tablet (100 mg total) by mouth daily May obtain over the counter and use as directed. Active Additional Information Patient not taking.Reported on 07/25/2024 clonazePAM (KlonoPIN) 0.5 mg tablet TAKE 1.5 TABLETS BY MOUTH NIGHTLY. TDD: 0.75 MG 45 tablet 3 Active traZODone (DESYREL) 50 mg tablet TAKE 1/2-1 TABLET BY MOUTH NIGHTLY NEEDED FOR INSOMNIA. 30 tablet 3 Active ipratropium (ATROVENT) 0.02 % nebulizer solution INHALE 2 & 1/2 (TWO & ONE-HALF) ML IN NEBULIZER TWICE DAILY Active sertraline (ZOLOFT) 100 mg tablet TAKE 2 TABLETS BY MOUTH ONCE DAILY. 60 tablet 11 Active guaiFENesin ER (MUCINEX) 600 mg 12 hr tabletIndications: Cough Take 2 tablets (1,200 mg total) by mouth 2 (two) times a day as needed for cough 2024 Discontinued sertraline (ZOLOFT) 100 mg tablet TAKE 1.5 TABLET BY MOUTH ONCE DAILY. 45 tablet 11 024 2024 Discontinued(R eorder) dicyclomine (BENTYL) 20 mg tabletIndications: Irritable Bowel Syndrome Take 1 tablet (20 mg total) by mouth 2 (two) times a day HOLD / do not resume until after you have been seen by your psychiatrist. 024 2024 Discontinued Active Problems Problem Noted Date Diagnosed Date Encounter for medical examination to establish c are 07/06/2024 Assessment & Plan (07/06/2024 8:51 AM ICE HOUSE SUPERVISOR): A(n) initial visit to establish care has [...] E 4.9 kPa Genotype 1a Concussion 06/29/2014 Encounters Date Type Department Care Team Description 07/28/2024 Telephone [facility] Primary Care at [address] [address] Joel Almonte MD Cologuard results 07/28/2024 Orders Only [facility] Medical [facility] Primary Care at [address] [address] Joel Almonte MD History of TIA (transient ischemic attack) 07/25/2024 1:00 PM ICE HOUSE SUPERVISOR Office Visit [facility] Pulmonary [place] [address] [place] [address] Cate Montanez MD Simple chronic bronchitis (HCC) (Primary Dx); Pulmonary nodule; Smoking greater than 40 pack years 07/20/2024 1:15 PM ICE HOUSE SUPERVISOR Office Visit [facility] [address] 5 [place] [phone] Darrian Martinez MD Malignant neoplasm of unspecified part of unspecified bronchus or lung (HCC) (Primary Dx) 07/20/2024 11:01 AM ICE HOUSE SUPERVISOR - 07/20/2024 11:59 PM ICE HOUSE SUPERVISOR Hospital Encounter [facility] - [place] [address] [facility] Floor 8 [place] [address] Malignant neoplasm of unspecified part of unspecified bronchus or lung (HCC) Discharge Disposition: Discharge to home or self care 07/11/2024 9:30 AM ICE HOUSE SUPERVISOR Telemedicine [facility] Department of Psychiatry [address] [place] [id number] Rae Cuellar NP Major depressive disorder, recurrent episode, moderate (HCC) (Primary Dx) 07/06/2024 4:18 PM ICE HOUSE SUPERVISOR - 07/06/2024 11:59 PM ICE HOUSE SUPERVISOR Hospital Encounter [address] [address] Tremor; Atrial fibrillation with rapid ventricular response (CMS/HCC) (HCC); Hypertension, essential; Vitamin D insufficiency Discharge Disposition: Discharge to home or self care 07/06/2024 9:00 AM ICE HOUSE SUPERVISOR Lab [facility] Outpatient Lab at [address] [address] Hypertension, essential (Primary Dx) 07/06/2024 8:00 AM ICE HOUSE SUPERVISOR Office Visit [facility] Primary Care at [address] [address] Joel Almonte MD Encounter for medical examination to establish care (Primary Dx); Simple chronic bronchitis (HCC); Tremor; Atrial fibrillation with rapid ventricular response (CMS/HCC) (HCC); Hypertension, essential; Vitamin D insufficiency; History of TIA (transient ischemic attack); Screening for osteoporosis; custodial (current) use of inhaled steroids; Colon cancer screening from Last 3 Months Immunizations Name Administration Dates Next Due Hep A / Hep B 03/15/2018 Hep A, Adult 07/01/2005,11/27/2004 Influenza, Quadrivalent, Hig h Dose, Preservative Free, Intrr 04/10/2023,04/17/2022,04/16/2020 Influenza, Quadrivalent, Spl it, Preservative Free, Intramuscular 06/05/2021 Influenza, Trivalent, Adjuva nted, Intramuscular 05/13/2018 Influenza, Trivalent, High D ose, Split, Preservative Free, Intramuscular 05/20/2024 Influenza, Unspecified 05/23/2024,2013,04/29/2013,04/08 Tdap 04/06/2015 ZOSTER Recombinant 02/01/2018 Surgical History Surgery Date Site/Laterality Comments TUBAL LIGATION 06/29/1974 - 06/28/1975 PAROTIDECTOMY 06/29/2002 - 06/28/2003 BREAST BIOPSY 06/29/1983 - 06/28/1984 Right 1984 CATARACT EXTRACTION 2022 Medical History Medical History Date Comments GERD (gastroesophageal reflux disease) 06/2018 Anxiety 2000 Brain concussion 2016 Depression 1985 Stroke (HCC) no clue Family History Medical History Relation Name Comments Hyperlipidemia Brother 1 Griffin Calhounger Hypertension Brother 1 Griffin Shankar Hyperlipidemia Brother 2 Mark Heavinashger Hypertension Brother 2 Mark Heavinashger Stroke Brother 2 Mark Heavinashger Cancer Father Kenny Heavinashger Hypertension Father Kenny Heavinashger Stroke Father's Brother Tevin Heavinashger Arthritis Maternal Grandfather Tobin Wombacher Cerebral aneurysm Maternal Grandfather Tobin Wombacher Allergy (severe) Mother Symone Calhounger Arthritis Mother Symone Heavinashger Cancer Mother Symone Heavinashger Depression Mother Symone Heavinashger Hyperlipidemia Mother Symone Heuberger Hypertension Mother Symone Heavinashger Depression Mother's Sister Chitra Alexander Alzheimer's disease Neg Hx Anesthesia problems Neg Hx Relation Name Status Comments Brother 1 Griffin Heuberger Brother 2 Mark Heuberger Father Kenny Heuberger Father's Brother [place] Heuberger Maternal Grandfather Tobin Wombacher Mother Symone Shankar Mother's Sister Chitra Alexander Social History Tobacco Use Types Packs/Day Years Used Date Smoking Tobacco: Every Day Cigarettes 1 58.1 Started: 1966 Smokeless Tobacco: Never Tobacco Cessation:Ready to Q uit: Yes; Counseling Given: Not Answered Comments:I try and try but never successful beyond 3 days Alcohol Use Standard Drinks/Week Comments Yes 2 (1 standard drink = 0.6 oz pur e alcohol) rarely AUDIT-C Answer Date Recorded Q1: How often do you have a drink containing alc ohol? Monthly or less 07/25/2024 Q2: How many drinks containi ng alcohol do you have on a typical day when you are drinking? 1 or 2 07/25/2024 Q3: How often do you have si x or more drinks on one occasion? Never 07/25/2024 PHQ-2 Answer Date Recorded PHQ-2 Total Score (If total score is 3 or more points, staff should administer the PHQ-9) 4 07/06/2024 Personal Safety Answer Date Recorded Have you ever been in or are you currently in a harmful physical or emotional relationship or is someone making you feel afraid or unsafe? 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 Not on file Not on f ile Not on file Obstetrics History Last Filed Vital Signs Vital Sign Reading Time Taken Comments Blood Pressure 116/58 07/25/2024 1:18 PM ICE HOUSE SUPERVISOR Pulse 91 07/25/2024 1:18 PM ICE HOUSE SUPERVISOR Temperature 36.7 ??C (98 ??F) 07/25/2024 1:18 PM ICE HOUSE SUPERVISOR Respiratory Rate 18 07/25/2024 1:18 PM ICE HOUSE SUPERVISOR Oxygen Saturation 95% 07/25/2024 1:18 PM ICE HOUSE SUPERVISOR Inhaled Oxygen Concentration - - Weight 59.9 kg (132 lb) 07/25/2024 1:18 PM ICE HOUSE SUPERVISOR Height 152.4 cm (5') 07/25/2024 1:18 PM ICE HOUSE SUPERVISOR Body Mass Index 25.78 07/25/2024 1:18 PM ICE HOUSE SUPERVISOR Plan of Treatment Health Maintenance Due Date Last Done Comments Osteoporosis Screening-Bone Density Scan 1950 Pneumococcal vaccine 65+ (1 of 2 - PCV) 1956 Well Visit 65+ 02/25/2025 02/26/2024, 01/28/2024 Fall Risk Assessment 03/01/2025 03/01/2024 Breast Cancer Screening-Mammogram 04/12/2025 Postponed from 1950 (Patient declined, but will receive in the future) DTaP/Tdap/Td Vaccine (2 - Td or Tdap) 06/28/2025 04/06/2015 Postponed from 04/06/2025 (Insurance / Financial) Depression Screening 07/06/2025 07/06/2024, 07/06/19 Zoster Vaccine (2 of 2) 07/06/2025 02/01/2018 Post poned from 03/29/2018 (Insurance / Financial) Colon Cancer Screening-DNA Stool 07/15/2027 07/15/2024 Hepatitis C Screening Completed 02/18/2024, 018 Covid-19 Vaccine Completed 05/20/2024, , 04/03/2022, Additional history exists Influenza Vaccine Completed 05/23/2024, , 04/10/2023, Additional history exists Colon Cancer Screening-FIT Discontinued 07/15/2024 Procedures Procedure Name Priority Date/Time Associated Diagnosis Comments CT HEAD WO CONTRAST Schedule Routine, Read Routine (OP Routine) 07/28/2024 11:26 AM ICE HOUSE SUPERVISOR History of TIA (transient ischemic attack) CT CHEST W CONTRAST Schedule Routine, Read Routine (OP Routine) 07/20/2024 11:36 AM ICE HOUSE SUPERVISOR Malignant neoplasm of unspecified part of unspecified bronchus or lung (HCC) STOOL DNA ? COLOGUARD Routine 07/15/2024 9:50 AM ICE HOUSE SUPERVISOR Colon cancer screening EGFR Routine 07/06/2024 9:00 AM ICE HOUSE SUPERVISOR Hypertension, essential DIFFERENTIAL AUTO Routine 07/06/2024 9:0 0 AM ICE HOUSE SUPERVISOR Hypertension, essential VITAMIN D 25 HYDROXY Routine 07/06/2024 9:00 AM ICE HOUSE SUPERVISOR Vitamin D insufficiency CBC WITH AUTO DIFFERENTIAL Routine 07/06/2024 9:00 AM ICE HOUSE SUPERVISOR Hypertension, essential COMPREHENSIVE METABOLIC PANEL Routine 07/06/2024 9:00 AM ICE HOUSE SUPERVISOR Hypertension, essential LIPID PANEL Routine 07/06/2024 9:00 AM ICE HOUSE SUPERVISOR Hypertension, essential THYROID FUNCTION CASCADE Routine 07/06/2024 9:00 AM ICE HOUSE SUPERVISOR Tremor Atrial fibrillation with rapid ventricular response (CMS/HCC) (HCC) Hypertension, essential HEPATITIS C ANTIBODY Routine 02/18/2024 10:28 AM CDT from Last 3 Months or Most Recently Relevant to Health Maintenance Results * CT Head WO Contrast (07/28/2024 11:26 AM ICE HOUSE SUPERVISOR) Anatomical Region Laterality Modality Head and Neck N/A Computed Tomogra phy Joel Almonte MD IMG CT PROCEDURES Final Res ult * CT Chest W Contrast (07/20/2024 11:36 AM ICE HOUSE SUPERVISOR) Anatomical Region Laterality Modality Body N/A Computed Tomogra phy 07/20/2024 11:5 6 AM ICE HOUSE SUPERVISOR Addenda Addendum by David Be MD on 07/20/2024 12:41 PM ICE HOUSE SUPERVISOR Addendum: Additional impression: 3. ??Age-indeterminate mild CT 8 vertebral body compression fracture, new since 02/22/2024. Electronically signed by: David Be M.D. Impressions 07/20/2024 11:56 AM ICE HOUSE SUPERVISOR 1. 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 2. ??New cavitary 0.4 cm right lower lobe pulmonary nodule which could be infectious although remains indeterminate. ??Close attention on follow-up imaging recommended. ??Three-month follow-up is suggested. Electronically signed by: David Be M.D. 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 COMPARISON:02/22/2024 FINDINGS: ??No supraclavicular, axillary, mediastinal, or hilar lymphadenopathy. ??Calcified lymph nodes are compatible with changes of old granulomatous disease. ??Heart size is normal with no pericardial effusion. Interval changes of left upper lobectomy. ??No evidence of residual disease. ??A background of moderate centrilobular emphysema is present. ??There are calcified pulmonary nodules compatible with changes of old granulomatous disease. ??Mild endobronchial mucous plugging with atelectasis seen in the right middle lobe. ??Small indeterminate cavitary right lower lobe pulmonary nodule measuring 0.4 cm is new (series 5, image 84). ??Groundglass nodularity in the residual left lower lobe and lingula is likely infectious or inflammatory. ??Small loculated left pleural effusion. ??No pneumothorax. ??Mild mucous secretions in the central airways. Limited views of the upper abdomen are unremarkable. ??No suspicious lytic or blastic osseous lesions. ??New mild T8 vertebral body compression fracture. 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 COMPARISON:02/22/2024 FINDINGS: No supraclavicular, axillary, mediastinal, or hilar lymphadenopathy. Calcified lymph nodes are compatible with changes of old granulomatous disease. Heart size is normal with no pericardial effusion. Interval changes of left upper lobectomy. No evidence of residual disease. A background of moderate centrilobular emphysema is present. There are calcified pulmonary nodules compatible with changes of old granulomatous disease. Mild endobronchial mucous plugging with atelectasis seen in the right middle lobe. Small indeterminate cavitary right lower lobe pulmonary nodule measuring 0.4 cm is new (series 5, image 84). Groundglass nodularity in the residual left lower lobe and lingula is likely infectious or inflammatory. Small loculated left pleural effusion. No pneumothorax. Mild mucous secretions in the central airways. Limited views of the upper abdomen are unremarkable. No suspicious lytic or blastic osseous lesions. New mild T8 vertebral body compression fracture. IMPRESSION: 1. Interval left upper lobectomy without evidence of residual disease. 2. New cavitary 0.4 cm right lower lobe pulmonary nodule which could be infectious although remains indeterminate. Close attention on follow-up imaging recommended. Three-month follow-up is suggested. Electronically signed by: David Be M.D. Darrian Martinez MD IMG CT PROCEDURES Edited Result - Final * Stool DNA - Cologuard (07/15/2024 9:50 AM ICE HOUSE SUPERVISOR) Stool DNA - Cologuard Negative Negative [place] (CLIA #:[id number]) Comment: NEGATIVE TEST RESULT. A negative Cologuard result indicates a low likelihood that a colorectal cancer (CRC) or advanced adenoma (adenomatous polyps with more advanced pre-malignant features) ??is present. The chance that a person with a negative Cologuard test has a colorectal cancer is less than 1 in 1500 (negative predictive value >99.9%) or has an ??advanced adenoma is less than ??5.3% (negative predictive value 94.7%). These data are based on a prospective cross-sectional study of 10,000 individuals at average risk for colorectal cancer who were screened with both Cologuard and colonoscopy. (Jamaal Talavera al, N Engl J Med 2014;370(14):1286- 1297) The normal value (reference range) for this assay is negative. COLOGUARD RE-SCREENING RECOMMENDATION: Periodic colorectal cancer screening is an important part of preventive healthcare for asymptomatic individuals at average risk for colorectal cancer. ??Following a negative Cologuard result, the [place] Cancer Society and U.S. Multi-Society Task Force screening guidelines recommend a Cologuard re-screening interval of 3 years. References: [place] [employer] Guideline for Colorectal Cancer Screening: https://www.cancer.org/cancer/jbhhv-uyqoif-snczsm/fmsdzvoay-ivsytavjg-glpbjla/ac s-rec ommendations.html.; Yg DK, Daryl CR, Twin PrasadK, Colorectal Cancer Screening: Recommendations for Physicians and Patients from the U.S. Multi-Society Task Force on Colorectal Cancer Screening , Am J Gastroenterology 2017; 112:7612-1636. TEST DESCRIPTION: Composite algorithmic analysis of stool DNA-biomarkers with hemoglobin immunoassay. ?? Quantitative values of individual biomarkers are not reportable and are not associated with individual biomarker result reference ranges. Cologuard is intended for colorectal cancer screening of adults of either sex, 45 years or older, who are at average-risk for colorectal cancer (CRC). Cologuard has been approved for use by the U.S. FDA. The performance of Cologuard was established in a cross sectional study of average-risk adults aged 50-84. Cologuard performance in patients ages 45 to 49 years was estimated by sub-group analysis of near-age groups. Colonoscopies performed for a positive result may find as the most clinically significant lesion: colorectal cancer [4.0%], advanced adenoma (including sessile serrated polyps greater than or equal to 1cm diameter) [20%] or non- advanced adenoma [31%]; or no colorectal neoplasia [45%]. These estimates are derived from a prospective cross-sectional screening study of 10,000 individuals at average risk for colorectal cancer who were screened with both Cologuard and colonoscopy. (Jamaal Talavera al, N Engl J Med 2014;370(14):2205-6141.) Cologuard may produce a false negative or false positive result (no colorectal cancer or precancerous polyp present at colonoscopy follow up). A negative Cologuard test result does not guarantee the absence of CRC or advanced adenoma (pre-cancer). The current Cologuard screening interval is every 3 years. ([place] [employer] Society and U.S. Multi-Society Task Force). Cologuard performance data in a 10,000 patient pivotal study using colonoscopy as the reference method can be accessed at the following location: www.[employer].Bionym/results. Additional description of the Cologuard test process, warnings and precautions can be found at www.[employer].com. Stool 07/15/2024 9:50 AM ICE HOUSE SUPERVISOR 07/16/2024 1:15 PM ICE HOUSE SUPERVISOR us Joel Almonte MD LAB BODY FLUIDS AND STOOLS ORDERABLES Final Result Performing Organization Address City/[facility] Co de Phone Number [facility] (CLIA #:[id number]) [address] [address] * eGFR (07/06/2024 9:00 AM ICE HOUSE SUPERVISOR) eGFR 64 >=60 mL/min/1. 73 m2 Comment: Interpretive Data Reference Interval Normal ?>/= 90 mL/min/1.73m2 Mildly decreased* ? 60 - 89 mL/min/1.73m2 Mildly to moderately decreased ?45 - 59 mL/min/1.73m2 Moderately to severely decreased ??30 - 44 mL/min/1.73m2 Severely decreased ?15 - 29 mL/min/1.73m2 Kidney Failure ?< 15 ??mL/min/1.73m2 *Relative to young adult level Estimated glomerular filtration rate is determined by the 2020 CKD-EPI equation recommended by the National Kidney Foundation (A Unifying Approach to GFR Estimation: Recommendations of the NKF-ASK Task Force on Reassessing the Inclusion of Race in Diagnosing Kidney Disease, JASN 2020). The CKD-EPI equation should not be used for patients with unstable renal function and has not been validated in children and those over 70. Current interpretive data was last reviewed 2021. Blood 07/06/2024 9:00 AM ICE HOUSE SUPERVISOR 07/06/2024 4:35 PM ICE HOUSE SUPERVISOR us Joel Almonte MD LAB BLOOD ORDERABLES Final Result Performing Organization Address [facility] Co de Phone Number [facility] [phone] [address] [employer] Department [place] [address] * Differential, auto (07/06/2024 9:00 AM ICE HOUSE SUPERVISOR) Neutrophil abs 2.7 1.5 - 6.5 K/cumm Imm gran abs 0.0 0.0 - 0.1 K/cumm [facility] Lymphocyte abs 1.7 0.8 - 3.3 K/cumm [facility] Monocyte abs 0.5 0.2 - 0.8 K/cumm [facility] Eosinophil abs 0.3 0.0 - 0.5 K/cumm [facility] Basophil abs 0.0 0.0 - 0.1 K/cumm [facility] Neutrophil pct 51.8 % [facility] Comment: Interpretive Data Percent cell count reference ranges are not reported, since discordance with absolute values may lead to misinterpretation of CBC data. Current Interpretive Data was last revised on 2017. Imm gran pct 0.2 % [facility] Comment: Interpretive Data Percent cell count reference ranges are not reported, since discordance with absolute values may lead to misinterpretation of CBC data. Current Interpretive Data was last revised on 2017. Lymphocyte pct 32.8 % [facility] Comment: Interpretive Data Percent cell count reference ranges are not reported, since discordance with absolute values may lead to misinterpretation of CBC data. Current Interpretive Data was last revised on 2017. Monocyte pct 9.2 % [facility] Comment: Interpretive Data Percent cell count reference ranges are not reported, since discordance with absolute values may lead to misinterpretation of CBC data. Current Interpretive Data was last revised on 2017. Eosinophil pct 5.4 % [facility] Comment: Interpretive Data Percent cell count reference ranges are not reported, since discordance with absolute values may lead to misinterpretation of CBC data. Current Interpretive Data was last revised on 2017. Basophil pct 0.6 % [facility] Comment: Interpretive Data Percent cell count reference ranges are not reported, since discordance with absolute values may lead to misinterpretation of CBC data. Current Interpretive Data was last revised on 2017. Blood 07/06/2024 9:00 AM ICE HOUSE SUPERVISOR 07/06/2024 4:35 PM ICE HOUSE SUPERVISOR Joel Almonte MD LAB BLOOD ORDERABLES Final Result Performing Organization Address City/[facility]/ZIP Co de Phone Number [facility] BOUDREAUX [phone] [address] [facility] [employer] [place] [address] * Thyroid Function [place] (07/06/2024 9:00 AM ICE HOUSE SUPERVISOR) TSH 1.97 0.30 - 4.20 mcIUnit/mL Blood 07/06/2024 9:0 0 AM ICE HOUSE SUPERVISOR 07/06/2024 4:35 PM ICE HOUSE SUPERVISOR Joel Almonte MD LAB BLOOD ORDERABLES Final Result Performing Organization Address [facility] Co de Phone Number MORA BOUDREAUX [phone] [facility] [employer] [place] [address] * (ABNORMAL) CBC with auto differential (07/06/2024 9:00 AM ICE HOUSE SUPERVISOR) Pathologist [facility] WBC 5.2 3.8 - 9.9 K/cumm Hgb 12.9 11.9 - 15.5 g/dL [facility] Hct 41.6 35.6 - 45.5 % [facility] Plt 249 150 - 400 K/cumm [facility] MPV 11.2 9.1 - 12.3 fL [facility] RBC 4.31 3.90 - 5.20 M/cumm [facility] MCV 96.5(H) 81.3 - 96.4 fL [facility] MCH 29.9 27.1 - 33.3 pg [facility] MCHC 31.0(L) 32.3 - 35.7 g/dL [facility] RDW CV 15.3(H) 11.1 - 14.9 % [facility] RDW SD 54.1(H) 35.7 - 48.1 fL [facility] NRBC abs 0.00 0.00 - 0.01 K/cumm [facility] Blood 07/06/2024 9:00 AM ICE HOUSE SUPERVISOR 07/06/2024 4:35 PM [employer] HOUSE SUPERVISOR Joel Almonte MD LAB BLOOD ORDERABLES Final Result Performing Organization Address [facility] Co de Phone Number [facility] [id number] [address] [employer] [place] [address] * Vitamin D 25 hydroxy (07/06/2024 9:00 AM ICE HOUSE SUPERVISOR) Vitamin D 25-OH 48 30 - 80 ng/mL Blood 07/06/2024 9:00 AM ICE HOUSE SUPERVISOR 07/06/2024 4:35 PM ICE HOUSE SUPERVISOR us Joel Almonte MD LAB BLOOD ORDERABLES Final Result Performing Organization Address [facility] Phone Number [facility] [phone] [address] [employer] [place] [address] * Lipid panel (07/06/2024 9:00 AM ICE HOUSE SUPERVISOR) Pathologist [facility] Cholesterol 166 30 - 199 mg/dL Comment: Interpretive Data Ages < or = 19 years ??Acceptable: ? <170 mg/dL ??Borderline high: ??170-199 mg/dL ??High: ? >or= 200 mg/dL Ages > or = 20 years ??Desirable: ?<200 mg/dL ??Borderline high: ??200-239 mg/dL ??High: ? >or= 240 mg/dL Literature References: 1. Expert Panel on Integrated Guidelines for Cardiovascular Health and Risk Reduction in Children and Adolescents. Pediatrics 2011;128:S213 2. NCEP Expert Panel. Circulation 2004;110:227 Current Interpretive Data was last revised on 2018. Triglycerides 134 <=149 mg/dL [facility] Comment: Interpretive Data Ages < or = 9 years ??Acceptable: ? <75 mg/dL ??Borderline high: ??75-99 mg/dL ??High: ? >or= 100 mg/dL Ages 10 to 20 years ??Acceptable: ? <90 mg/dL ??Borderline high: ??90-129 mg/dL ??High: ? >or= 130 mg/dL Ages > or = 20 years ??Desirable: ?<150 mg/dL ??Borderline high: ??150-199 mg/dL ??High: ? 200-499 mg/dL ?Very high: ?? >or= 499 mg/dL Literature References: 1. Expert Panel on Integrated Guidelines for Cardiovascular Health and Risk Reduction in Children and Adolescents. Pediatrics 2011;128:S213 2. NCEP Expert Panel. Circulation 2004;110:227 Current Interpretive Data was last revised on 2018. HDL 56 >=40 mg/dL [facility] Comment: Interpretive Data Ages < or = 19 years ??Acceptable: ? >45 mg/dL ??Borderline low: ?? 40-45 mg/dL ??Low: ? <40 mg/dL Ages > or = 20 years ??Desirable: ?>or= 60 mg/dL ??Low: ? <40 mg/dL Literature References: 1. Expert Panel on Integrated Guidelines for Cardiovascular Health and Risk Reduction in Children and Adolescents. Pediatrics 2011;128:S213 2. NCEP Expert Panel. Circulation 2004;110:227 Current Interpretive Data was last revised on 2018. LDL, calculated 87 <=129 mg/dL [facility] Comment: Interpretive Data Ages < or = 19 years ??Acceptable: ? <110 mg/dL ??Borderline high: ??110-129 mg/dL ??High: ?>or= 130 mg/dL Ages > or = 20 years ??Optimal: ? <100 mg/dL ??Near optimal: ?100-129 mg/dL ??Borderline high: ?? 130-159 mg/dL ??High: ?>160 mg/dL Calculated using the Cano LDL-C estimating equation. This equation was implemented on 2024. Prior to this date LDL-C was estimated using the Friedewald equation. Literature References: 1. Expert Panel on Integrated Guidelines for Cardiovascular Health and Risk Reduction in Children and Adolescents. Pediatrics 2011;128:S213 2. NCEP Expert Panel. Circulation 2004;110:227 3. Jerome Ponce et al. BOLIVAR Cardiol. 2020 October 27;5(5):540-548. doi: 10.1001/jamacardio.2020.0013 Current Interpretive Data was last revised on 2024. Non-HDL Cholesterol 110 mg/dL [facility] Comment: Interpretive Data Ages < or = 19 years ??Acceptable: ?<120 mg/dL ??Borderline high: ??120-144 mg/dL ??High: ?>145 mg/dL Ages > or = 20 years ??When triglycerides are >200 mg/dL, Non-HDL cholesterol is a secondary target of ? therapy with treatment goals that are 30 mg/dL greater than the LDL cholesterol target. ? Literature References: 1. Expert Panel on Integrated Guidelines for Cardiovascular Health and Risk Reduction in Children and Adolescents. Pediatrics 2011;128:S213 2. NCEP Expert Panel. Circulation 2004;110:227 Current Interpretive Data was last revised on 2018. Chol/HDL ratio 3 [facility] Blood 07/06/2024 9:00 AM ICE HOUSE SUPERVISOR 07/06/2024 4:35 PM ICE HOUSE SUPERVISOR us Joel Almonte MD LAB BLOOD ORDERABLES Final Result [facility] [id number] [employer] Department [place] [address] * Comprehensive metabolic panel (07/06/2024 9:00 AM ICE HOUSE SUPERVISOR) Sodium 141 135 - 145 mmol/L Potassium, pl 4.5 3.3 - 4.9 mmol/L [facility] Chloride 104 97 - 110 mmol/L [facility] CO2 27 22 - 32 mmol/L [facility] Anion gap 10 2 - 15 mmol/L [facility] BUN 14 6 - 25 mg/dL [facility] Creatinine 0.94 0.60 - 1.10 mg/dL [facility] Glucose 93 70 - 199 mg/dL [facility] Comment: Interpretive Data Fasting glucose >/= 126 mg/dl is diagnostic for diabetes. ?? Fasting is defined as no caloric intake for at least 8 hours. Fasting glucose between 100 mg/dl to 125 mg/dl is diagnostic of prediabetes. In a patient with classic symptoms of hyperglycemia or hyperglycemic crisis, a random glucose >/= 200 mg/dl is diagnostic for diabetes. In the absence of unequivocal hyperglycemia, results should be confirmed by repeat testing. The classification and Diagnosis of Diabetes Diabetes Care 2021; 46: S19-S40. Current interpretive data was last revised 2022. Calcium 8.9 8.5 - 10.3 mg/dL [facility] Bilirubin, total 0.3 0.1 - 1.2 mg/dL [facility] Protein, pl 7.8 6.5 - 8.5 g/dL [facility] Albumin 4.3 3.5 - 5.0 g/dL [facility] Alk phos 104 40 - 130 Units/L [facility] ALT 22 7 - 45 Units/L [facility] AST 41 10 - 45 Units/L [facility] Blood 07/06/2024 9:00 AM ICE HOUSE SUPERVISOR 07/06/2024 4:35 PM ICE HOUSE SUPERVISOR us Joel Almonte MD LAB BLOOD ORDERABLES Final Result [facility] [address] Department [place] [address] * (ABNORMAL) Hepatitis C antibody Blood (02/18/2024 10:28 AM CDT) Hep C Ab Reactive( A) Nonreactive Comment: Reactive for HCV antibodies. ??This may represent current or past HCV infection. Supplemental molecular testing will be automatically performed to determine current infection status in accordance with current CDC screening recommendations. Current interpretive data was last revised on 22 Blood 02/18/2024 10:2 8 AM CDT 02/18/2024 10:39 AM CDT us Nik Melo MD LAB MICROBIOLOGY - GENERAL OR DERABLES Final Result [facility] Department [place] [address] from Last 3 Months or Most Recently Relevant to Health Maintenance Insurance MEDICARE AET SENIOR SUPPLEMENT MEDICARE AETNA SENIOR SUPPLEMENT Advance Directives For more information, please contact: [phone] * Full Code (Latest Code Status on File) Date Activated Date Inactivated Comments 02/18/2024 4:37 PM 03/01/2024 6:59 PM Care Teams Biostatistics Professor Relationship Specialty Start Date End Date Joel Almonte MD [address] [facility] [address] [place] [address] PCP - General Family Medicine 07/25/24 Aden Siddiqui MD [address] [facility] [address] [place] [address] Surgeon Ophthalmology 08/07/23 Rae Cuellar NP [address] [facility] [address] [place] [address] Nurse Practitioner Nurse Practitioner 07/06/24 Darrian Martinez MD [id number] [place] [address] Referring Physician Thoracic Surgery 07/06/24
--- OUTSIDE RECORDS SUMMARY | 2024-08-01 12:59 | XMS_ITS | Referral Summary ---
Author Organization [facility] Address [address] [place] [address] Care Team Providers Care Applications Support Engineer Name Role Phone Chen Aden Jeff MD Unavailable Rae Cuellar NP Unavailable Darrian Martinez MD Unavailable Joel Almonte MD Primary Care Provider Encounters Date Type Department Care Team Description 07/28/2024 Telephone [facility] Medical Group Primary Care at [address] [address] Joel Almonte MD [facility] results 07/28/2024 Orders Only [facility] Medical [facility] Primary Care at [address] [address] Joel Almonte MD History of TIA (transient ischemic attack) 07/25/2024 1:00 PM RESTAURANT OPERATIONS MANAGER Office Visit [facility] Medical Group Pulmonary [address] [place] [address] Cate Montanez MD Simple chronic bronchitis (HCC) (Primary Dx); Pulmonary nodule; Smoking greater than 40 pack years 07/20/2024 11:01 AM RESTAURANT OPERATIONS MANAGER - 07/20/2024 11:59 PM RESTAURANT OPERATIONS MANAGER Hospital Encounter [facility] [place] [address] [facility] Floor 8 [place] [address] Malignant neoplasm of unspecified part of unspecified bronchus or lung (HCC) Discharge Disposition: Discharge to home or self care 07/20/2024 1:15 PM RESTAURANT OPERATIONS MANAGER Office Visit [facility] Surgery [address] [facility] Floor 5 [place] [phone] Darrian Martinez MD Malignant neoplasm of unspecified part of unspecified bronchus or lung (HCC) (Primary Dx) 07/11/2024 9:30 AM RESTAURANT OPERATIONS MANAGER Telemedicine [facility] Department of Psychiatry [address] [facility] [address] [place] [address] Rae Cuellar NP Major depressive disorder, recurrent episode, moderate (HCC) (Primary Dx) 07/06/2024 4:18 PM RESTAURANT OPERATIONS MANAGER - 07/06/2024 11:59 PM RESTAURANT OPERATIONS MANAGER Hospital Encounter [facility] [address] [place] [address] Tremor; Atrial fibrillation with rapid ventricular response (CMS/HCC) (HCC); Hypertension, essential; Vitamin D insufficiency Discharge Disposition: Discharge to home or self care 07/06/2024 9:00 AM RESTAURANT OPERATIONS MANAGER Lab [facility] Medical Group Outpatient Lab at [address] [address] Hypertension, essential (Primary Dx) 07/06/2024 8:00 AM RESTAURANT OPERATIONS MANAGER Office Visit [facility] Medical Group Primary Care at [address] [address] Joel Almonte MD Encounter for medical examination to establish care (Primary Dx); Simple chronic bronchitis (HCC); Tremor; Atrial fibrillation with rapid ventricular response (CMS/HCC) (HCC); Hypertension, essential; Vitamin D insufficiency; History of TIA (transient ischemic attack); Screening for osteoporosis; 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; Colon cancer screening from Last 3 Months Allergies No known active allergies Medications aspirin [...] by mouth 2 (two) times a day 10/18/2 023 Active atorvastatin (LIPITOR) 40 mg tabletIndications: hyperlipidemia Take 1 tablet (40 mg total) by mouth nightly Active cyclobenzaprine (FLEXERIL) 10 mg tabletIndications: Muscle Spasm,teeth grinding Take 1 tablet (10 mg total) by mouth nightly Active tiotropium-olodate roL (Stiolto Respimat) 2.5-2.5 mcg/actuation inhalerIndications :Bronchospasm Prevention with COPD Inhale 2 puffs every morning Active lisinopriL (PRINIVIL,ZESTRIL) 10 mg tabletIndications: hypertension Take 1 tablet (10 mg total) by mouth every morning Active buPROPion XL (WELLBUTRIN XL) 150 mg 24 hr tablet Take 1 tablet by mouth once daily [address] (PROTONIX) 40 mg EC tabletIndications: Treatment of Non-Bleeding Gastric Disorder Take 1 tablet (40 mg total) by mouth keno writer/runner before breakfast Active albuterol HFA (PROVENTIL HFA,VENTOLIN [...] BY MOUTH ONCE DAILY. 60 tablet 11 025 Active guaiFENesin ER (MUCINEX) 600 mg 12 [...] 07/06/2024 Assessment & Plan (07/06/2024 8:51 AM RESTAURANT OPERATIONS MANAGER): A(n) initial visit to establish care has [...] smoke Chronic hepatitis C without hepatic coma ([facility]/HC C) 10/01/2017 Overview (07/06/2024): 10/13/17 Fibroscan CAP 200, E 4.9 kPa Genotype 1a Concussion 06/29/2014 Immunizations Name Administration Dates Next Due Hep A / Hep B 03/15/2018 Hep A, Adult 07/01/2005,11/27/2004 Influenza, Quadrivalent, Hig h Dose, Preservative Free, Intrr 04/10/2023,04/17/2022,04/16/2020 Influenza, Quadrivalent, Spl it, Preservative Free, Intramuscular 06/05/2021 Influenza, Trivalent, Adjuva nted, Intramuscular 05/13/2018 Influenza, Trivalent, High D ose, Split, Preservative Free, Intramuscular 05/20/2024 Influenza, Unspecified 05/23/2024,2013,04/29/2013,04/08 Tdap 04/06/2015 ZOSTER Recombinant 02/01/2018 Social History Tobacco Use Types Packs/Day Years [...] on file Legal Sex Female 12:54 PM RESTAURANT OPERATIONS MANAGER Gender Identity Female 03/07/2020 6:08 PM CDT Sexual Orientation Not on file 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 Not on file Not on f ile Not on file Last Filed Vital Signs Vital Sign Reading Time Taken Comments Blood Pressure 116/58 07/25/2024 1:18 PM RESTAURANT OPERATIONS MANAGER Pulse 91 07/25/2024 1:18 PM RESTAURANT OPERATIONS MANAGER Temperature 36.7 ??C (98 ??F) 07/25/2024 1:18 PM RESTAURANT OPERATIONS MANAGER Respiratory Rate 18 07/25/2024 1:18 PM RESTAURANT OPERATIONS MANAGER Oxygen Saturation 95% 07/25/2024 1:18 PM RESTAURANT OPERATIONS MANAGER Inhaled Oxygen Concentration - - Weight 59.9 kg (132 lb) 07/25/2024 1:18 PM RESTAURANT OPERATIONS MANAGER Height 152.4 cm (5') 07/25/2024 1:18 PM RESTAURANT OPERATIONS MANAGER Body Mass Index 25.78 07/25/2024 1:18 PM RESTAURANT OPERATIONS MANAGER Plan of Treatment Not on file Procedures Procedure Name Priority Date/Time Associated Diagnosis Comments CT HEAD WO CONTRAST Schedule Routine, Read Routine (OP Routine) 07/28/2024 11:26 AM RESTAURANT OPERATIONS MANAGER History of TIA (transient ischemic attack) CT CHEST W CONTRAST Schedule Routine, Read Routine (OP Routine) 07/20/2024 11:36 AM RESTAURANT OPERATIONS MANAGER Malignant neoplasm of unspecified part of unspecified bronchus or lung (HCC) STOOL DNA ? COLOGUARD Routine 07/15/2024 9:50 AM RESTAURANT OPERATIONS MANAGER Colon cancer screening EGFR Routine 07/06/2024 9:00 AM RESTAURANT OPERATIONS MANAGER Hypertension, essential DIFFERENTIAL AUTO Routine 07/06/2024 9:0 0 AM RESTAURANT OPERATIONS MANAGER Hypertension, essential VITAMIN D 25 HYDROXY Routine 07/06/2024 9:00 AM RESTAURANT OPERATIONS MANAGER Vitamin D insufficiency CBC WITH AUTO DIFFERENTIAL Routine 07/06/2024 9:00 AM RESTAURANT OPERATIONS MANAGER Hypertension, essential COMPREHENSIVE METABOLIC PANEL Routine 07/06/2024 9:00 AM RESTAURANT OPERATIONS MANAGER Hypertension, essential LIPID PANEL Routine 07/06/2024 9:00 AM RESTAURANT OPERATIONS MANAGER Hypertension, essential THYROID FUNCTION CASCADE Routine 07/06/2024 9:00 AM RESTAURANT OPERATIONS MANAGER Tremor Atrial fibrillation with rapid ventricular response (CMS/HCC) (HCC) Hypertension, essential HEPATITIS C ANTIBODY Routine 02/18/2024 10:28 AM CDT from Last 3 Months or Most Recently Relevant to Health Maintenance Results * CT Head WO Contrast (07/28/2024 11:26 AM RESTAURANT OPERATIONS MANAGER) Anatomical Region Laterality Modality Head and Neck N/A Computed Tomogra phy us Joel Almonte MD IMG CT PROCEDURES Final Res ult * CT Chest W Contrast (07/20/2024 11:36 AM RESTAURANT OPERATIONS MANAGER) Anatomical Region Laterality Modality Body N/A Computed Tomogra phy 07/20/2024 11:5 6 AM RESTAURANT OPERATIONS MANAGER Addenda Addendum by David Be MD on 07/20/2024 12:41 PM RESTAURANT OPERATIONS MANAGER Addendum: Additional impression: 3. ??Age-indeterminate mild CT 8 vertebral body compression fracture, new since 02/22/2024. Electronically signed by: David Be M.D. Impressions 07/20/2024 11:56 AM RESTAURANT OPERATIONS MANAGER 1. 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 2. ??New cavitary 0.4 cm right lower lobe pulmonary nodule which could be infectious although remains indeterminate. ??Close attention on follow-up imaging recommended. ??Three-month follow-up is suggested. Electronically signed by: David Be M.D. Narrative 07/20/2024 11:56 AM RESTAURANT OPERATIONS MANAGER EXAMINATION: CT chest with intravenous contrast HISTORY: [...] by: David Be M.D. Darrian Martinez MD [facility] [place]EDURES Edited Result - Final * Stool DNA - Cologuard (07/15/2024 9:50 AM RESTAURANT OPERATIONS MANAGER) Stool DNA - Cologuard Negative Negative [employer] (CLIA #:[id number]) Comment: NEGATIVE TEST RESULT. A negative Cologuard [...] screened with both Cologuard and colonoscopy. (Jamaal Ledezma et al, N Engl J Med 2014;370(14):1286- 1297) The normal value (reference range) for this assay is negative. COLOGUARD RE-SCREENING RECOMMENDATION: Periodic colorectal cancer screening is an important part of preventive healthcare for asymptomatic individuals at average risk for colorectal cancer. ??Following a negative Cologuard result, the [place] Cancer Society and U.S. Multi-Society Task Force screening guidelines recommend a Cologuard re-screening interval of 3 years. References: [place] [employer] Guideline for Colorectal Cancer Screening: https://www.cancer.org/cancer/jvnqc-umblqg-hvthzd/qzghxvdkc-dzslzycdr-tkjgwwh/ac s-rec ommendations.html.; Yg DK, Daryl CR, Twin PrasadK, Colorectal Cancer Screening: Recommendations for Physicians and Patients from the U.S. Multi-Society Task Force on Colorectal Cancer Screening , Am J Gastroenterology 2017; 112:3502-3676. TEST DESCRIPTION: Composite algorithmic analysis of stool [...] screened with both Cologuard and colonoscopy. (Jamaal Ledezma et al, N Engl J Med 2014;370(14):5370-2658.) Cologuard may produce a false negative or false positive result (no colorectal cancer or precancerous polyp present at colonoscopy follow up). A negative Cologuard test result does not guarantee the absence of CRC or advanced adenoma (pre-cancer). The current Cologuard screening interval is every 3 years. ([place] [employer] Society and U.S. Multi-Society Task Force). Cologuard performance data in a 10,000 patient pivotal study using colonoscopy as the reference method can be accessed at the following location: www.IG [employer]/results. Additional description of the Cologuard test process, warnings and precautions can be found at www.MUBIrd.com. Stool 07/15/2024 9:5 0 AM RESTAURANT OPERATIONS MANAGER 07/16/2024 1:15 PM RESTAURANT OPERATIONS MANAGER us Joel Almonte MD LAB BODY FLUIDS AND STOOLS ORDERABLES Final Result [facility] (CLIA #:[id number]) [address] [address] * eGFR (07/06/2024 9:00 AM RESTAURANT OPERATIONS MANAGER) eGFR 64 >=60 mL/min/1. 73 m2 Comment: [...] last reviewed 2021. Blood 07/06/2024 9:00 AM RESTAURANT OPERATIONS MANAGER 07/06/2024 4:35 PM RESTAURANT OPERATIONS MANAGER us Joel Almonte MD LAB BLOOD ORDERABLES Final Result [facility] [address] Department [place] [address] * Differential, auto (07/06/2024 9:00 AM RESTAURANT OPERATIONS MANAGER) Neutrophil abs 2.7 1.5 - 6.5 K/cumm Imm gran abs 0.0 0.0 - 0.1 K/cumm [facility] Lymphocyte abs 1.7 0.8 - 3.3 K/cumm [facility] Monocyte abs 0.5 0.2 - 0.8 K/cumm [facility] Eosinophil abs 0.3 0.0 - 0.5 K/cumm [facility] Basophil abs 0.0 0.0 - 0.1 K/cumm [facility] Neutrophil pct 51.8 % [facility] Comment: Interpretive Data Percent cell count reference ranges are not reported, since discordance with absolute values may lead to misinterpretation of CBC data. Current Interpretive Data was last revised on 2017. Imm gran pct 0.2 % [facility] Comment: Interpretive Data Percent cell count reference ranges are not reported, since discordance with absolute values may lead to misinterpretation of CBC data. Current Interpretive Data was last revised on 2017. Lymphocyte pct 32.8 % [facility] Comment: Interpretive Data Percent cell count reference ranges are not reported, since discordance with absolute values may lead to misinterpretation of CBC data. Current Interpretive Data was last revised on 2017. Monocyte pct 9.2 % [facility] Comment: Interpretive Data Percent cell count reference ranges are not reported, since discordance with absolute values may lead to misinterpretation of CBC data. Current Interpretive Data was last revised on 2017. Eosinophil pct 5.4 % [facility] Comment: Interpretive Data Percent cell count reference ranges are not reported, since discordance with absolute values may lead to misinterpretation of CBC data. Current Interpretive Data was last revised on 2017. Basophil pct 0.6 % [facility] Comment: Interpretive Data Percent cell count reference ranges are not reported, since discordance with absolute values may lead to misinterpretation of CBC data. Current Interpretive Data was last revised on 2017. Blood 07/06/2024 9:00 AM RESTAURANT OPERATIONS MANAGER 07/06/2024 4:35 PM RESTAURANT OPERATIONS MANAGER us Joel Almonte MD LAB BLOOD ORDERABLES Final Result [facility] [address] Department [place] [address] * Thyroid Function [place] (07/06/2024 9:00 AM RESTAURANT OPERATIONS MANAGER) TSH 1.97 0.30 - 4.20 mcIUnit/mL Blood 07/06/2024 9:00 AM RESTAURANT OPERATIONS MANAGER 07/06/2024 4:35 PM RESTAURANT OPERATIONS MANAGER Joel Almonte MD LAB BLOOD ORDERABLES Final Result Performing Organization Address [facility] Co de Phone Number [facility] [place] [address] [place] [place] [address] * (ABNORMAL) CBC with auto differential (07/06/2024 9:00 AM RESTAURANT OPERATIONS MANAGER) WBC 5.2 3.8 - 9.9 K/cumm Hgb 12.9 11.9 - 15.5 g/dL [facility] Hct 41.6 35.6 - 45.5 % [facility] Plt 249 150 - 400 K/cumm [facility] MPV 11.2 9.1 - 12.3 fL [facility] RBC 4.31 3.90 - 5.20 M/cumm [facility] MCV 96.5(H) 81.3 - 96.4 fL [facility] MCH 29.9 27.1 - 33.3 pg [facility] MCHC 31.0(L) 32.3 - 35.7 g/dL [facility] RDW CV 15.3(H) 11.1 - 14.9 % [facility] RDW SD 54.1(H) 35.7 - 48.1 fL [facility] NRBC abs 0.00 0.00 - 0.01 K/cumm [facility] Blood 07/06/2024 9:0 0 AM RESTAURANT OPERATIONS MANAGER 07/06/2024 4:35 PM RESTAURANT OPERATIONS MANAGER Joel Almonte MD LAB BLOOD ORDERABLES Final Result Performing Organization Address City/[facility]/ZIP Co de Phone Number [facility] [place] [address] [facility] [place] [address] * Vitamin D 25 hydroxy (07/06/2024 9:00 AM RESTAURANT OPERATIONS MANAGER) Pathologist [facility] Vitamin D 25-OH 48 30 - 80 ng/mL Blood 07/06/2024 9:00 AM RESTAURANT OPERATIONS MANAGER 07/06/2024 4:35 PM RESTAURANT OPERATIONS MANAGER us Joel Almonte MD LAB BLOOD ORDERABLES Final Result Performing Organization Address City/State/ZIP Co ri Phone Number [facility] [place] [address] Department [place] [address] * Lipid panel (07/06/2024 9:00 AM RESTAURANT OPERATIONS MANAGER) Cholesterol 166 30 - 199 mg/dL Comment: [...] mg/dL ??High: ?>160 mg/dL Calculated using the Jerome LDL-C estimating equation. This equation was implemented on 2024. Prior to this date LDL-C was estimated using the Friedewald equation. Literature References: 1. Expert Panel on Integrated Guidelines for Cardiovascular Health and Risk Reduction in Children and Adolescents. Pediatrics 2011;128:S213 2. NCEP Expert Panel. Circulation 2004;110:227 3. Jerome Luke al. BOLIVAR Cardiol. 2020 October 27;5(5):540-548. doi: 10.1001/jamacardio.2020.0013 Current Interpretive Data was last revised on 2024. Non-HDL Cholesterol 110 mg/dL [facility] Comment: Interpretive Data Ages < or = [...] revised on 2018. Chol/HDL ratio 3 [facility] Blood 07/06/2024 9:00 AM RESTAURANT OPERATIONS MANAGER 07/06/2024 4:35 PM RESTAURANT OPERATIONS MANAGER Joel Almonte MD LAB BLOOD ORDERABLES Final Result [facility] [address] Department of Laboratories [place], [place] [id number] * Comprehensive metabolic panel (07/06/2024 9:00 AM RESTAURANT OPERATIONS MANAGER) Sodium 141 135 - 145 mmol/L Potassium, pl 4.5 3.3 - 4.9 mmol/L [facility] Chloride 104 97 - 110 mmol/L [facility] CO2 27 22 - 32 mmol/L [facility] Anion gap 10 2 - 15 mmol/L [facility] BUN 14 6 - 25 mg/dL [facility] Creatinine 0.94 0.60 - 1.10 mg/dL [facility] Glucose 93 70 - 199 mg/dL [facility] Comment: Interpretive Data Fasting glucose >/= 126 [...] Units/L [facility] Blood 07/06/2024 9:00 AM RESTAURANT OPERATIONS MANAGER 07/06/2024 4:35 PM RESTAURANT OPERATIONS MANAGER us Joel Almonte MD LAB BLOOD ORDERABLES Final Result Performing Organization Address City/[facility] Co de Phone Number [facility] [address] Department [place] [address] * (ABNORMAL) Hepatitis C antibody Blood (02/18/2024 [...] - GENERAL OR DERABLES Final Result [facility] [place] [address] from Last 3 Months or Most Recently Relevant to Health Maintenance Insurance MEDICARE AET SENIOR SUPPLEMENT Member Subscriber Plan / Payer (Ef fective 2019-Present) Name:Soniya Duggan Relation to Subscriber:Self Name:Soniya Duggan Payer ID:[id number] Group ID:Not on file Type:[facility] Address: [place] [address] MEDICARE AETNA SENIOR SUPPLEMENT Advance Directives For more information, please contact: [phone] * Full Code (Latest Code Status on File) Date Activated Date Inactivated Comments 02/18/2024 4:37 PM 03/01/2024 6:59 PM Care Teams Applications Support Engineer Relationship Specialty Start Date End Date Joel Almonte MD [address] [facility] [address] [place] [address] PCP - General Family Medicine 07/25/24 Aden Siddiqui MD [address] DEPT OPHTHALMOLOGY, [facility] [address] [place] [address] Surgeon Ophthalmology 08/07/23 Rae Cuellar NP [address] [facility] [address] [place] [address] Nurse Practitioner Nurse Practitioner 07/06/24 Darrian Martinez MD [id number] [place] [address] Referring Physician Thoracic Surgery 07/06/24
--- OUTSIDE RECORDS SUMMARY | 2024-08-01 12:59 | XMS_ITS | Encounter Summary ---
Author Organization [facility] Healthcare Address [address] [place] [address] Care Team Providers Care News Broadcaster Name Role Phone ChenAden MD Unavailable Rae Cuellar NP Unavailable Darrian Martinez MD Unavailable Joel Almonte MD Primary Care Provider Encounter Details Date Type Department Care Team (Late st Contact Info) Description 07/28/2024 Orders Only [facility] Medical Group Primary Care at [address] [address] Joel Almonte MD [address] [place] [address] [address] [place] [address] History of TIA (transient ischemic attack) Social History Tobacco Use Types Packs/Day Years Used Date Smoking Tobacco: Every Day Cigarettes 1 58.1 Started: 1966 Smokeless Tobacco: Never Comments:I try and try but n ever successful beyond 3 days Alcohol Use Standard [...] on file Legal Sex Female 12:54 PM TITLE ABSTRACTOR Gender Identity Female 03/07/2020 6:08 PM CDT Sexual Orientation Not on file 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 Not on file Not on f ile Not on file documented as of this encounter Plan of Treatment Not on file documented as of this encounter Procedures Procedure Name Priority Date/Time Associated Diagnosis Comments CT HEAD WO CONTRAST Schedule Routine, Read Routine (OP Routine) 07/28/2024 11:26 AM TITLE ABSTRACTOR History of TIA (transient ischemic attack) documented in this encounter Results * CT Head WO Contrast (07/28/2024 11:26 AM TITLE ABSTRACTOR) Anatomical Region Laterality Modality Head and Neck N/A Computed Tomogra phy us Joel Almonte MD IMG CT PROCEDURES Final Res ult documented in this encounter Visit Diagnoses Diagnosis History of TIA (transient ischemic attack) documented in this encounter Care Teams News Broadcaster Relationship Specialty Start Date End Date Joel Almonte MD [address] [facility] [address] [place] [address] PCP - General Family Medicine 07/25/24 Aden Siddiqui MD [address] DEPT OPHTHALMOLOGY, [address] [place] [address] Surgeon Ophthalmology 08/07/23 Rae Cuellar NP [address] [facility] [address] [place] [address] Nurse Practitioner Nurse Practitioner 07/06/24 Darrian Martinez MD [id number] [place] [address] Referring Physician Thoracic Surgery 07/06/24 documented as of this encounter
== END 2024-08-01 11:47 | disposition home or self-care (01) ==
LOC: CHSIMG 11:48
PROVIDERS: PCP Family Medicine; Visit Provider Family Medicine
DX: Z78.0 Asymptomatic menopausal state (principal); M85.89 Other specified disorders of bone density and structure, multiple sites
CPT/HCPCS: 77080

== ENCOUNTER 2024-11-17 09:14 | Outpatient (CLI) | payer MEDICARE, SELFPAY ==
--- NOTE | ~2024-11-17 | CT_ITS ---
Non-contrast Head CT History: TIA COMPARISON: 07/28/2024 Technique: Axial non-contrast imaging of the brain was performed. Dose reduction technique was used on this scan by utilizing automated exposure control and iterative reconstruction technique. The dose -length product (DLP) was 599.57 mGy-cm. Findings: There is no evidence of intracranial hemorrhage, mass lesion, or acute infarct. Brain par enchyma appears normal. The ventricles and subarachnoid spaces are normal in size. The calvarium ap pears normal. The visualized paranasal sinuses and mastoid air cells are clear. Impression: No significant abnormality seen. Reviewed, dictated and finalized at location . Impression: No significant abnormality seen.
== END 2024-11-17 09:15 | disposition home or self-care (01) ==
PROVIDERS: PCP Family Medicine; Visit Provider Family Medicine
DX: Z86.73 Personal history of transient ischemic attack (TIA), and cerebral infarction without residual deficits (principal)
CPT/HCPCS: 70450

== ENCOUNTER 2024-12-08 12:48 | Outpatient (CLI) | payer MEDICARE, SELFPAY ==
--- OUTSIDE RECORDS SUMMARY | 2024-12-08 13:17 | XMS_ITS | Encounter Summary ---
Author Organization [facility] Address [address] [place] [address] Phone Care Team Providers Care Content Developer Name Role Phone Darci Polanco MD Primary Care Prov ider Aden Siddiqui MD Unavailable Rae Cuellar F[place]LAND ATTENDANT Unavailable Darrian Martinez MD Unavailable Joel Almonte MD Primary Care Provider [phone] Encounter Details Date Type Department Care Team (Latest Contact Info) Description 08/27/2016 Orders Only MACI[facility] NL MS Scanning, Provider Social History Tobacco Use Types Packs/Day Years Used Date Smoking Tobacco: Never Assessed Comments Unknown Sex and Gender Information Value Date Recorded Sex Assigned at Not on file 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 Sex 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:54 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 Gender Identity Female 03/07/2020 6:08 PM CDT [...] on filedocumented in this encounter Care Teams Content Developer Relationship Specialty Start Date End Date Darci Polanco MD PCP - General Family Medicine 12/29/18 07/24/24 Joel Almonte MD [address] [facility] [address] [place] [address] PCP - General Family Medicine 07/25/24 Aden Siddiqui MD [address] [facility] [address] [place] [address] Surgeon Ophthalmology 08/07/23 Rae Cuellar NP [address] [address] [place] [address] Nurse Practitioner Nurse Practitioner 07/06/24 Darrian Martinez MD [address] [address] [place] [address] Referring Physician Thoracic Surgery 07/06/24 documented as of this encounter
--- OUTSIDE RECORDS SUMMARY | 2024-12-08 13:18 | XMS_ITS ---
Author Organization [facility] Address [address] [place] [address] Care Team Providers Care Morning Show Newscast Producer Name Role Phone DeysichAden MD Unavailable [phone] Rae Cuellar NP Unavailable Darrian Martinez MD Unavailable Joel Almonte MD Primary Care Provider Active Problems Problem Noted Date Diagnosed Date Unsteady 10/18/2024 Assessment & Plan (10/18/2024 1:43 PM CDT): - unclear etiology of unsteady sensation, differential include chronic sinusitis, subacute stroke, idiopathic - will send for head imaging and follow up on results, can continue flonase and claritin at this time Osteopenia of multiple sites 10/04/2024 Compression fracture of thor acic vertebra with routine healing 10/04/2024 Encounter for medical examination to establish c are 07/06/2024 Assessment & Plan (07/06/2024 8:51 AM HOMELAND SECURITY PROGRAM SPECIALIST): A(n) initial visit to establish care has [...] attack) 07/06 Tremor 07/06/2024 Hypertension, essential 07/06/2024 Assessment & Plan (10/18/2024 1:46 PM CDT): - poorly controlled at this time, will increase lisinopril to 20mg daily at this time Hypoxia 02/25/2024 Assessment & Plan (02/25/2024 2:04 PM CDT): AB.49/36/65 - 2L NC applied - monitor mental and respiratory status Atrial fibrillation with rapid ventricular respo nse 02/24/2024 Assessment & Plan (02/26/2024 1:51 PM [...] removed this morning, will monitor - CXR 8/30: persistent collapse of remaining portion of ZACH, [...] smoke Chronic hepatitis C without hepatic coma 018 Overview (07/06/2024): 10/13/17 Fibroscan CAP 200, E 4.9 kPa Genotype 1a Concussion 06/29/2014 Current Treatment and Therapy Plans No current plan information found. Past Treatment and Therapy Plans No past plan information found. Lifetime Dose Tracking * Chemical Lifetime Dose Automatic Entry Manual Entr y DLP 781 mGycm 781 mGycm 0 mGycm
--- OUTSIDE RECORDS SUMMARY | 2024-12-08 13:18 | XMS_ITS | Clinical Summary ---
Author Organization [facility] Address [address] [place] [address] Care Team Providers Care Ten Pin [place] Manager Name Role Phone Darci Polanco MD Primary Care Provider + Source Comments [facility],non-owned Affiliates and Associated Physician Practices is amultiple site organization consisting of ambulatory clinics and hospital sitesin [place], [place], [place] and [place]. This disclosure is being madepursuant to the Care Everywhere program and may not contain all information available regarding this patient. Last updated 18.[facility] Allergies Active Allergy Reactions Criticality Noted Date Comments Erythromycin Rash Medium Medications * Be aware that medications may not be up to date on this document. Alwaysverify current medications with the patient. betamethasone dipropionate (DIPROSONE) 0.05 % ointment 1 8 Active buPROPion SR 12hr (WELLBUTRIN-SR) 150 MG tablet Take 150 mg by mouth 8 Active clonazePAM (KLONOPIN) 1 MG tablet Take 1 mg by mouth nightly as needed 8 Active DULoxetine (CYMBALTA) 60 MG capsule Take 60 mg by mouth once daily Active FLUAD 0.5 ML ALISSA injection ADM 0.5ML IM UTD 0 8 Active polyethylene glycol 3350 (MIRALAX) powder Use entire 255g bottle with 64oz of clear liquid as directed for colonoscopy prep. 7 Active Active Problems Problem Noted Date Diagnosed [...] = 0.6 oz pur e alcohol) SELDOM Comments Unknown Sex and Gender Information Value Date Recorded Sex Assigned at Not on file Legal Sex Female 6:20 AM MOTION PICTURE PROJECTIONIST Gender Identity Not on file Sexual Orientation Not on file Last Filed Vital Signs Vital Sign Reading Time Taken Comments Blood Pressure 103/79 09/03/2018 10:22 AM MOTION PICTURE PROJECTIONIST Pulse 70 09/03/2018 10:22 AM MOTION PICTURE PROJECTIONIST Temperature 36.6 C (97.9 F) 09/03/2018 10:22 AM MOTION PICTURE PROJECTIONIST Respiratory Rate 18 09/03/2018 10:2 2 AM MOTION PICTURE PROJECTIONIST Oxygen Saturation 100% 09/03/2018 10: 22 AM MOTION PICTURE PROJECTIONIST Inhaled Oxygen Concentration - - Weight 62.6 kg (137 lb 14.4 oz) 019 10:22 AM MOTION PICTURE PROJECTIONIST Height 157.5 cm (5' 2) 09/03/2018 10:2 2 AM MOTION PICTURE PROJECTIONIST Body Mass Index 25.22 09/03/2018 10:22 AM MOTION PICTURE PROJECTIONIST Plan of Treatment Health Maintenance Due Date Last Done Comments BONE DENSITY TESTING 1950 COLOGUARD (AGES 45-75) - COLON CA SCREENING 1950 COLON MONITORING 1950 COLONOSCOPY - COLON CA SCREENING 1950 CT COLONOGRAPHY - COLON CA SCREENING 1950 Colorectal Cancer Screening 1950 FIT - COLON CA SCREENING 1950 FLEX SIG - COLON CA SCREENING 1950 LIPID TESTING 1950 MAMMOGRAM 1950 MEDICARE AWV 12 MONTHS 1950 DTAP/TDAP/TD VACCINES (1 - [...] history exists COVID-19 VACCINE ( season) 2024 DEPRESSION SCREENING 06/29/2024 INFLUENZA VACCINE (Season Ended) 2025 HEPATITIS C SCREENING Completed 09/07/2018 , 09/03/2018, 04/13/2018, Additional history exists HIB VACCINE Aged Out No longer eligi ble based on patient's age to complete this topic HPV VACCINE Aged Out No longer eligi ble based on patient's age to complete this topic MENINGOCOCCAL (Group B) VACCINE SHARED DECISION-MAKING Aged Out No longer eligible based on patient's age to complete this topic MENINGOCOCCAL GROUPS A/C/Y/W VACCINE Aged Out No longer eligible based on patient's age to complete this topic Procedures Procedure Name Priority Date/Time Associated Diagnosis Comments COMPREHENSIVE METABOLIC PANEL Routine 09/07/2018 10:34 AM CDT Chronic hepatitis C without hepatic coma HEPATITIS C RNA QUANTITATIVE Routine 09/07/2018 10:34 AM CDT Chronic hepatitis C without hepatic coma from Last 3 Months or Most Recently [...] (1.18 Log IU/mL to 8.00 Log IU/mL). The analytical performance characteristics of this assay have been determined by J. Hilburn. The modifications have not been cleared or approved by the FDA. This assay has been validated pursuant to the CLIA regulations and is used for clinical purposes. For more information on this test, go to: http://education.[employer]/faq/ERB35a4 (This link is being provided for informational/ educational purposes only.) Test Performed at: [facility] [id number] [facility] [place] [address] BRIT COELLO DO,MPH Blood BLOOD SPECIMEN / Unknown 09/07/2018 10:34 AM CDT 09/08/2018 4:26 AM CDT Chitra Mccloud SURGICAL COORDINATOR-NURSE MIDWIFE/CLINICAL INSTRUCTOR LAB - CHEMISTRY ORDE RICHAR Final Result [facility] [address] [place] [address] * COMPREHENSIVE METABOLIC PANEL (09/07/2018 10:34 AM CDT) Glucose 93 65 - 99 mg/dL [facility] Comment: Fasting reference interval BUN 16 7 - 25 mg/dL [facility] Creatinine 0.87 0.50 - 0.99 mg/dL [facility] Comment: For patients >49 years of age, the reference limit for Creatinine is approximately 13% higher for people identified as -Vietnamese. eGFR by MDRD 68 > OR = [...] 29 U/L [facility] Comment: Test Performed at: [facility] [id number] [facility] [place] [address] BRIT COELLO DO,MPH Blood BLOOD SPECIMEN / Unknown 09/07/2018 10:34 AM CDT 09/08/2018 4:26 AM CDT Chitra Mccloud SURGICAL COORDINATOR-NURSE MIDWIFE/CLINICAL INSTRUCTOR LAB - CHEMISTRY TA MCQUEEN Final Result Performing Organization Address City/State/[facility] [place] Phone Number [facility] [address] [place] [address] from Last 3 Months or Most Recently Relevant to Health Maintenance Insurance MEDICARE COMMERCIAL GENERIC MEDICARE AETNA MEDICARE * Guarantor: SONIYA TAMEZ Account Type Relation to Patient Date of Phone Billing Address Personal/Family [address] [place] [address] MEDICARE AETNA * Guarantor: SONIYA TAMEZ Account Type Relation to Patient Date of Phone Billing Address Personal/Family [address] [place] [address] MEDICARE AETNA * Guarantor: JOISONIYA Account Type Relation to Patient Date of Phone Billing Address Personal/Family [address] [place] [address] MEDICARE AETNA Care Teams [place] Manager Relationship Specialty Start Date End Date Darci Polanco MD [address] [place] [address] PCP - General 10/13/17
--- OUTSIDE RECORDS SUMMARY | 2024-12-08 13:18 | XMS_ITS | Patient Health Record ---
Author Organization 1 OF [facility]en[facility] Address [address] [facility] [address] [place] [address] Care Team Providers Care Scraper Operator Name Role Phone Darci Polanco M.D. Primary Care Provider Surinder Keen Unavailable [phone] Allergies No Known Allergies Reason For Referral No Information Medications Medication SIG (Take, Route, Frequency, Duration) Notes Start Date End Date Status ARIPiprazole Active DULoxetine HCl Activ e Cyclobenzaprine HCl Active Aspirin 81 Active Calcium Active Vit F34-Rrhpkngeau-Olpp-Bahe Active Fish Oil [place]-3 Act leeanne Clonazepam ODT Activ e Ventolin HFA Active Stiolto Respimat Act leeanne Social History Tobacco Use: Social History Observation Description Date Details (start date - stop date) Former Smoker NA - NA Tobacco Use/Smoking Question Answer Notes Are you a former smoker Plan Of Treatment No Information Insurance Providers Payer Name Payer Address Payer Phone Subscriber Number Group Number Insured Name Patient Relationship to Insured Coverage Start Date Coverage End Date Medicare [address] [facility] [place], [place] [id number] Soniya Duggan Self - patient is the insured [employer] SENIOR SU[employer]LEMENTAL PLAN [address] [address] [place] [address] [id number] Plan G Soniya Duggan Self - patient is the insured Medical (General) History Medical History History ICD Code Depression Gerd Hep C Migraines Stroke Surgical History Surgery Date(Month/Year) Ingrown Toenail Removal 1979
--- OUTSIDE RECORDS SUMMARY | 2024-12-08 13:18 | XMS_ITS | Referral Summary ---
Author Organization [facility] Address [address] [place] [phone] Care Team Providers Care Window And Siding Craftsman Name Role Phone ChenAden MD Unavailable [phone] Rae Cuellar NP Unavailable Darrian Martinez MD Unavailable Joel Almonte MD Primary Care Provider Encounters Date Type Department Care Team Description 11/28/2024 Telephone [facility] Surgery [address] [place] [phone] [place], [place] 11/28/2024 Orders Only [facility] Surgery [address] [place] [address] 5 [place] [phone] Zulma Vazquez NP History of lung cancer (Primary Dx); Pulmonary nodules 11/28/2024 Telephone [facility] Surgery [address] [place] [phone] Zulma Vazquez NP 11/22/2024 2:30 PM CDT Office Visit [facility] Pulmonary [address] [phone] Cate Montanez MD Simple chronic bronchitis (HCC) (Primary Dx); Malignant neoplasm of lung, unspecified laterality, unspecified part of lung (HCC); Smoking greater than 40 pack years; Gastroesophageal reflux disease without esophagitis; Primary hypertension 11/18/[address] [facility] Primary Care at [address] [phone] Megan Beckford MA 11/18/2024 9:44 AM CDT - 11/18/2024 11:59 PM CDT Hospital Encounter [facility] [place] [address] [facility] Floor 8 [place] [address] Malignant neoplasm of unspecified part of unspecified bronchus or lung (HCC) Discharge Disposition: Discharge to home or self care 10/21/[address] [facility] Primary Care at [address] [phone] Joel Almonte MD 10/18/2024 11:45 AM CDT Office Visit [facility] Primary Care at [address] [phone] Joel Almonte MD Unsteady (Primary Dx); Hypertension, essential; History of TIA (transient ischemic attack) 10/17/2024 Nurse Triage [facility] Primary Care at [address] [phone] Joel Almonte MD 10/05/2024 Results Follow-Up [facility] Primary Care at [address] [phone] Joel Almonte MD XR Spine Thoracic 3 Vw 10/05/2024 10:00 AM CDT Telemedicine [facility] Department of Psychiatry [address] [place] [address] [place] [phone] Rae Cuellar NP Major depressive disorder, recurrent episode, in partial remission (Primary Dx) 10/04/2024 1:30 PM CDT Ancillary Procedure [facility] Imaging at [address] [phone] Osteopenia of multiple sites; Compression fracture of T8 vertebra with routine healing, subsequent encounter 10/04/2024 1:00 PM CDT Office Visit [facility] Primary Care at [address] [phone] Joel Almonte MD Hypertension, essential (Primary Dx); Vitamin D insufficiency; Simple chronic bronchitis (HCC); Osteopenia of multiple sites; Compression fracture of T8 vertebra with routine healing, subsequent encounter 09/14/2024 10:00 AM CDT Telemedicine [facility] Department of Psychiatry [address] [facility] [address] [place] [phone] Rae Cuellar NP Major depressive disorder, recurrent episode, moderate (HCC) (Primary Dx) 09/08/2024 Telephone [facility] Department of Psychiatry [address] [facility] [address] [place] [address] Makeda Kerns 09/08/2024 Telephone [facility] Psychiatry [facility] [place] [address] Dee Dee Castañeda RMA Pharmacy call back from Last 3 Months Allergies No known active allergies Medications aspirin 81 mg enteric coated tabletIndications: Cerebral Thromboembolism Prevention,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) Take 1 tablet (81 mg total) by mouth every morning Active multivitamin capsuleIndications :Vitamin Deficiency Prevention Take 1 capsule by mouth every morning Active tiotropium-olodate roL (Stiolto Respimat) 2.5-2.5 mcg/actuation inhalerIndications :Bronchospasm Prevention with COPD Inhale 2 puffs every morning [address] (PROTONIX) 40 mg EC tabletIndications: Treatment of Non-Bleeding Gastric Disorder Take 1 tablet (40 mg total) 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 024 Active ipratropium (ATROVENT) 0.02 % nebulizer solution INHALE 2 & 1/2 (TWO & ONE-HALF) ML IN NEBULIZER TWICE DAILY 024 Active sertraline (ZOLOFT) 100 mg tablet TAKE 2 TABLETS BY MOUTH ONCE DAILY. 60 tablet 11 025 Active cyclobenzaprine (FLEXERIL) 10 mg tabletIndications: Muscle Spasm,teeth grinding Take 1 tablet (10 mg total) by mouth nightly 90 tablet 3 025 2025 Active atorvastatin (LIPITOR) 40 mg tabletIndications: hyperlipidemia Take 1 tablet (40 mg total) by mouth nightly 90 tablet 3 025 2025 Active albuterol HFA (PROVENTIL HFA,VENTOLIN HFA,PROAIR HFA) 90 mcg/actuation inhaler Inhale 2 puffs every 6 (six) hours as needed for wheezing or shortness of breath OK TO SUBSTITUTE IF ALTERNATIVE CHEAPER 1 each 6 025 2024 Active calcium carbonate-vitamin D3 2,500 mg (1,000 mg elemental)-800 unit tablet Take by mouth Acti ve diclofenac DR (VOLTAREN) 75 mg EC tabletIndications: Osteoarthritis Take 1 tablet (75 mg total) by mouth 2 (two) times a day 180 tablet 1 Active buPROPion XL (WELLBUTRIN XL) 150 mg 24 hr tablet Take 1 tablet (150 mg total) by mouth daily 30 tablet 8 Active mirtazapine (REMERON) 15 mg tablet TAKE 1 TABLET BY MOUTH NIGHTLY. 30 tablet 8 025 Active lisinopriL (PRINIVIL,ZESTRIL) 20 mg tabletIndications: hypertension Take 1 tablet (20 mg total) by mouth every morning 90 tablet 1 025 Active fluticasone propionate (FLONASE) 50 mcg/actuation nasal spray Administer 2 sprays into each nostril daily 3 each 1 025 Active clonazePAM (KlonoPIN) 0.5 mg tablet TAKE 1 & 1/2 (ONE & ONE-HALF) TABLETS BY MOUTH AT BEDTIME 45 tablet 025 Active clonazePAM (KlonoPIN) 0.5 mg tablet TAKE 1 & 1/2 (ONE & ONE-HALF) TABLETS BY MOUTH NIGHTLY 45 tablet 025 2024 Discontinued Active Problems Problem Noted Date [...] 07/06/2024 Assessment & Plan (07/06/2024 8:51 AM MANAGED CARE MANAGER): A(n) initial visit to establish care [...] 4.9 kPa Genotype 1a Concussion 06/29/2014 Immunizations Immunization Administration Dates Next Due Hep A / [...] Date Smoking Tobacco: Every Day Cigarettes 1 58.4 Started: 1966 Smokeless Tobacco: Never Tobacco Cessation:Ready [...] more points, staff should administer the PHQ-9) 0 10/04/2024 PHQ-9 Answer Date Recorded PHQ-9 Total Score 20 07/06/2024 Personal Safety Answer Date Recorded Have you ever been in or are you currently in a harmful physical or emotional relationship or is someone making you feel afraid or unsafe? 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 Not on file Not on f ile Not on file Last Filed Vital Signs Vital Sign Reading Time Taken Comments Blood Pressure 130/68 11/22/2024 2:19 PM CDT Pulse 95 11/22/2024 2:19 PM CDT Temperature 36.7 C (98 F) 11/22/2024 2:19 PM CDT Respiratory Rate 16 11/22/2024 2:19 PM CDT Oxygen Saturation 94% 11/22/2024 2:19 PM CDT Inhaled Oxygen Concentration - - Weight 65.1 kg (143 lb 9.6 oz) 11/22/2024 2:19 P M CDT Height 152.4 cm (5') 11/22/2024 2:19 PM CDT Body Mass Index 28.04 11/22/2024 2:19 PM CDT Plan of Treatment Not on file Procedures Procedure Name Priority Date/Time Associated Diagnosis Comments CT CHEST W CONTRAST Schedule Routine, Read Routine (OP Routine) 11/18/2024 10:01 AM CDT Malignant neoplasm of unspecified part of unspecified bronchus or lung (HCC) XR SPINE THORACIC 3 VIEWS Schedule Routine, Read Routine (OP Routine) 10/04/2024 1:43 PM CDT Osteopenia of multiple sites Compression fracture of T8 vertebra with routine healing, subsequent encounter HM DEXA SCAN Routine 08/01/2024 3:06 PM MANAGED CARE MANAGER STOOL DNA COLOGUARD Routine 07/15/2024 9:50 AM MANAGED CARE MANAGER Colon cancer screening HEPATITIS C ANTIBODY Routine 02/18/2024 10:28 AM CDT from Last 3 Months or Most Recently Relevant to Health Maintenance Results * CT Chest W Contrast (11/18/2024 10:01 AM CDT) Anatomical Region Laterality Modality Body N/A Computed Tomogra phy 11/18/2024 10:0 8 AM CDT Impressions 11/18/2024 10:08 AM CDT 1. Postsurgical changes of left upper lobe segmentectomy without evidence of recurrent disease. 2. Unchanged 7 mm left lower lobe pulmonary nodule. A 5 mm right lower lobe pulmonary nodule which may be partially calcified, is unchanged from most recent prior CT on 07/20/2024, but is new from preoperative CT on 02/15/2024. Electronically signed by: Mecca Young M.D. Narrative 11/18/2024 10:08 AM CDT EXAMINATION: CT CHEST W CONTRAST HISTORY: 74 year old status post left upper lobe segmentectomy for squamous cell carcinoma 02/18/2024 TECHNIQUE: Transaxial computed tomographic images of the chest were obtained with intravenous contrast according to the standard protocol after the uneventful administration of 70 mL Opti-Ray 350 intravenous contrast. COMPARISON: CT 07/20/2024, 02/22/2024, 02/15/2024 FINDINGS: Moderate upper lobe predominant centrilobular emphysema. Unchanged calcified granulomas. Postsurgical changes of left upper lobe segmentectomy. Partially calcified 5 mm right lower lobe nodule unchanged (series 4, image 89). There is unchanged scarring/rounded atelectasis in the left lower lobe. A 7 mm left lower lobe nodule with slightly spiculated margins is unchanged. No new pulmonary nodules. Trachea and central airways are clear. No supraclavicular or axillary lymphadenopathy. Multiple mildly prominent mediastinal lymph nodes, some of which are partially calcified are unchanged and likely represent sequelae of granulomatous disease. The thoracic aorta is normal caliber with three-vessel arch. The heart size is normal with trace pericardial fluid. Calcified coronary artery atherosclerosis. Small hiatal hernia. The imaged upper abdomen is unremarkable. Left anterior rib fractures. Unchanged thoracic spine compression fracture of the T8 inferior endplate. No acute fracture or suspicious osseous lesion. Procedure Note Mecca Young MD - 11/18/2024 EXAMINATION: CT CHEST W CONTRAST HISTORY: 74 year old status post left upper lobe segmentectomy for squamous cell carcinoma 02/18/2024 TECHNIQUE: Transaxial computed tomographic images of the chest were obtained with intravenous contrast according to the standard protocol after the uneventful administration of 70 mL Opti-Ray 350 intravenous contrast. COMPARISON: CT 07/20/2024, 02/22/2024, 02/15/2024 FINDINGS: Moderate upper lobe predominant centrilobular emphysema. Unchanged calcified granulomas. Postsurgical changes of left upper lobe segmentectomy. Partially calcified 5 mm right lower lobe nodule unchanged (series 4, image 89). There is unchanged scarring/rounded atelectasis in the left lower lobe. A 7 mm left lower lobe nodule with slightly spiculated margins is unchanged. No new pulmonary nodules. Trachea and central airways are clear. No supraclavicular or axillary lymphadenopathy. Multiple mildly prominent mediastinal lymph nodes, some of which are partially calcified are unchanged and likely represent sequelae of granulomatous disease. The thoracic aorta is normal caliber with three-vessel arch. The heart size is normal with trace pericardial fluid. Calcified coronary artery atherosclerosis. Small hiatal hernia. The imaged upper abdomen is unremarkable. Left anterior rib fractures. Unchanged thoracic spine compression fracture of the T8 inferior endplate. No acute fracture or suspicious osseous lesion. IMPRESSION: 1. Postsurgical changes of left upper lobe segmentectomy without evidence of recurrent disease. 2. Unchanged 7 mm left lower lobe pulmonary nodule. A 5 mm right lower lobe pulmonary nodule which may be partially calcified, is unchanged from most recent prior CT on 07/20/2024, but is new from preoperative CT on 02/15/2024. Electronically signed by: Mecca Young M.D. Darrian Martinez MD IMG CT PROCEDURES Final R esult * XR Spine Thoracic 3 Vw (10/04/2024 1:43 PM CDT) Anatomical Region Laterality Modality Spine N/A [employer] phy 10/04/2024 9:37 PM CDT Narrative 10/04/2024 9:43 PM CDT EXAM DESCRIPTION: XR SPINE THORACIC 3 VIEWS REASON FOR STUDY: compression fracture from 3 months ago Known T8 compression fx. Still having mid back back. No injury or surgery. TECHNIQUE: 3 radiographic view(s) of the thoracic spine. COMPARISON: Chest CT from 07/20/2024. FINDINGS: ALIGNMENT: Mild levo scoliosis of the thoracolumbar region. VERTEBRAE: Mild vertebral height loss at T8, most evident along the inferior endplate. The appearance is stable from recent CT.. No new osseous abnormality. DISCS: Stable mild disc degeneration with mild disc space narrowing and hypertrophic endplate spurring at several levels. SOFT TISSUES: Within normal limits. Postinflammatory calcifications of the lung martinez bilaterally. Stable minimal pulmonary atelectasis-infiltrate at the left base. IMPRESSION: No acute osseous abnormality of the thoracic spine. Stable chronic appearing vertebral height loss at T8. No new finding. Stable mild disc degeneration at several levels. THIS IS AN ELECTRONICALLY VERIFIED FINAL REPORT 10/04/2024 9:43 PM - Electronically signed by Linda GOODWIN T: Report ID: [id number] Reading Location: [id number] Procedure Note Stacia Henning MD - 10/04/2024 EXAM DESCRIPTION: XR SPINE THORACIC 3 VIEWS REASON FOR STUDY: compression fracture from 3 months ago Known T8 compression fx. Still having mid back back. No injury or surgery. TECHNIQUE: 3 radiographic view(s) of the thoracic spine. COMPARISON: Chest CT from 07/20/2024. FINDINGS: ALIGNMENT: Mild levo scoliosis of the thoracolumbar region. VERTEBRAE: Mild vertebral height loss at T8, most evident along theinferior endplate. The appearance is stable from recent CT.. No new osseous abnormality. DISCS: Stable mild disc degeneration with mild disc space narrowing and hypertrophic endplate spurring at several levels. SOFT TISSUES: Within normal limits. Postinflammatory calcifications of the lung martinez bilaterally. Stable minimal pulmonary atelectasis-infiltrate at the left base. IMPRESSION: No acute osseous abnormality of the thoracic spine. Stablechronic appearing vertebral height loss at T8. No new finding. Stable mild disc degeneration at several levels. THIS IS AN ELECTRONICALLY VERIFIED FINAL REPORT 10/04/2024 9:43 PM - Electronically signed by Linda GOODWIN T: Report ID: [id number] Reading Location: [place] [address] Jole Almonte MD IMG XR PROCEDURES Final Res ult * HM DEXA SCAN (08/01/2024 3:06 PM MANAGED CARE MANAGER) Historical Provider HEALTH MAINTENANCE Final Result * Stool DNA - Cologuard (07/15/2024 9:50 AM MANAGED CARE MANAGER) Stool DNA - Cologuard Negative Negative [email or web address] (CLIA #:[id number]) Comment: NEGATIVE TEST RESULT. A negative Cologuard result indicates a low likelihood that a colorectal cancer (CRC) or advanced adenoma (adenomatous polyps with more advanced pre-malignant features) is present. The chance that a person with a negative Cologuard test has a colorectal cancer is less than 1 in 1500 (negative predictive value >99.9%) or has an advanced adenoma is less than 5.3% (negative predictive value 94.7%). These data are based on a prospective cross-sectional study of 10,000 individuals at average risk for colorectal cancer who were screened with both Cologuard and colonoscopy. (Jamaal Talavera al, N Engl J Med 2014;370(14):3545-4464) The normal value (reference range) for this assay is negative. COLOGUARD RE-SCREENING RECOMMENDATION: Periodic colorectal cancer screening is an important part of preventive healthcare for asymptomatic individuals at average risk for colorectal cancer. Following a negative Cologuard result, the [place] [employer] and U.S. Multi-Society Task Force screening guidelines recommend a Cologuard re-screening interval of 3 years. References: [place] [employer] Guideline for Colorectal Cancer Screening: https://www.cancer.org/cancer/eaksx-zamxix-gzqlkj/dzflwogwx-uqnyepyyz-ilarkqm/ac s-rec ommendations.html.; Yg DK, Daryl CR, Twin PrasadK, Colorectal Cancer Screening: Recommendations for Physicians and Patients from the U.S. Multi-Society Task Force on Colorectal Cancer Screening , Am J Gastroenterology 2017; 112:5157-0223. TEST DESCRIPTION: Composite algorithmic analysis of stool DNA-biomarkers with hemoglobin immunoassay. Quantitative values of individual biomarkers are not [...] (Jamaal Talavera al, N Engl J Med 2014;370(14):1709-7133.) Cologuard may produce a false negative or false positive result (no colorectal cancer or precancerous polyp present at colonoscopy follow up). A negative Cologuard test result does not guarantee the absence of CRC or advanced adenoma (pre-cancer). The current Cologuard screening interval is every 3 years. ([place] [employer] and U.S. Multi-Society Task Force). Cologuard performance data in a 10,000 patient pivotal study using colonoscopy as the reference method can be accessed at the following location: www.[employer].Bangbite/results. Additional description of the Cologuard test process, warnings and precautions can be found at www.[employer]og[employer]EC ABrd.Bangbite. Stool 07/15/2024 9:50 AM MANAGED CARE MANAGER 07/16/2024 1:15 PM MANAGED CARE MANAGER us Joel Almonte MD LAB BODY FLUIDS AND STOOLS ORDERABLES Final Result Performing Organization Address [facility] Co de Phone Number [employer] (CLIA #:[id number]) [address] [place] [address] * (ABNORMAL) Hepatitis C antibody Blood (02/18/2024 10:28 AM CDT) Hep C Ab Reactive( A) Nonreactive Comment: Reactive for HCV antibodies. This may represent current or past HCV infection. Supplemental molecular testing will be automatically performed to determine current infection status in accordance with current CDC screening recommendations. Current interpretive data was last revised on 22 Blood 02/18/2024 10:2 8 AM CDT 02/18/2024 10:39 AM CDT us Nik Melo MD LAB MICROBIOLOGY - GENERAL OR DERABLES Final Result Performing Organization Address [facility] Co de Phone Number [facility] Department [place] [address] from Last 3 Months or Most Recently Relevant to Health Maintenance Insurance MEDICARE T SENIOR SUPPLEMENT MEDICARE A[employer] SENIOR SUPPLEMENT Advance Directives For more information, please contact: [phone] * Full Code (Latest Code Status on File) Date Activated Date Inactivated Comments 02/18/2024 4:37 PM 03/01/2024 6:59 PM Care Teams Window And Siding Craftsman Relationship Specialty Start Date End Date Joel Almonte MD [address] [facility] [address] [place] [address] PCP - General Family Medicine 07/25/24 Aden Siddiqui MD [address] [facility] [address] [place] [address] Surgeon Ophthalmology 08/07/23 Rae Cuellar NP [id number] [place] [address] Nurse Practitioner Nurse Practitioner 07/06/24 Darrian Martinez MD [address] [facility] [address] [place] [address] Referring Physician Thoracic Surgery 07/06/24
--- OUTSIDE RECORDS SUMMARY | 2024-12-08 13:18 | XMS_ITS | Clinical Summary ---
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
--- OUTSIDE RECORDS SUMMARY | 2024-12-08 13:18 | XMS_ITS | Clinical Summary ---
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 Floor [address] [place] [address] Sanjuana Almeida MA 11/28/[address] [facility] Floor [address] [place] [address] Zulma Vazquez NP History of lung cancer (Primary Dx); Pulmonary nodules 11/28/[address] [facility] Surgery [facility] Floor [address] [place] [address] Zulma Vazquez NP 11/22/2024 2:30 PM CDT Office Visit [facility] Pulmonary [address] [place] [address] Cate Montanez MD Simple chronic bronchitis (HCC) (Primary Dx); Malignant neoplasm of lung, unspecified laterality, unspecified part of lung (HCC); Smoking greater than 40 pack years; Gastroesophageal reflux disease without esophagitis; Primary hypertension 11/18/2024 9:44 AM CDT - 11/18/2024 11:59 PM CDT Hospital Encounter [facility] [place] [address] [facility] Floor [address] [place] [address] Malignant neoplasm of unspecified part of unspecified bronchus or lung (HCC) Discharge Disposition: Discharge to home or self care 11/18/2024 Telephone [facility] Primary Care at [address] [phone] Megan Beckford MA 10/21/2024 Nurse Triage [facility] Primary Care at [address] [phone] Joel Almonte MD 10/18/2024 11:45 AM CDT Office Visit [facility] Primary Care at [address] [phone] Joel Almonte MD Unsteady (Primary Dx); Hypertension, essential; History of TIA (transient ischemic attack) 10/17/2024 Nurse Triage [facility] Primary Care at [address] [phone] Joel Almonte MD 10/05/2024 10:[address] [facility] Department of Psychiatry [address] [facility] [address] [place] [phone] Rae Cuellar NP Major depressive disorder, recurrent episode, in partial remission (Primary Dx) 10/05/2024 Results Follow-Up [facility] Primary Care at [address] [phone] Joel Almonte MD XR Spine Thoracic 3 Vw 10/04/2024 1:30 PM CDT Ancillary Procedure [facility] Imaging at [address] [phone] Osteopenia of multiple sites; Compression fracture of T8 vertebra with routine healing, subsequent encounter 10/04/2024 1:00 PM CDT Office Visit [facility] Primary Care at [address] [phone] Joel Almonte MD Hypertension, essential (Primary Dx); Vitamin D insufficiency; Simple chronic bronchitis (HCC); Osteopenia of multiple sites; Compression fracture of T8 vertebra with routine healing, subsequent encounter 09/14/2024 10:[address] [facility] Department of Psychiatry [address] [facility] [address] [place] [phone] Rae Cuellar NP Major depressive disorder, recurrent episode, moderate (HCC) (Primary Dx) 09/08/[address] [facility] Department of Psychiatry [address] [facility] [address] [place] [phone] Makeda Kerns 09/08/[address] [facility] Psychiatry [address] [place] [phone] Dee Dee Castañeda RMA Pharmacy call back from Last 3 Months Immunizations Immunization Administration Dates Next Due Hep [...] History Date Comments GERD (gastroesophageal reflux disease) June 30 Anxiety 1999 Brain concussion 2015 Depression 1984 Stroke (HCC) no clue Cancer (HCC) 12/2014 Chronic bronchitis (HCC) Hypertension Family History Medical History Relation Name Comments Hyperlipidemia Brother 1 Griffin Calhounger Hypertension Brother 1 Griffin Hebailey Hyperlipidemia Brother 2 Mark Calhounger Hypertension Brother 2 Mark Calhounger Stroke Brother 2 Mark Shankar Cancer Father Kenny Shankar Hypertension Father Kenny Shankar Stroke Father's Brother Tevin Shankar Arthritis Maternal Grandfather Tobin Wombacher Cerebral aneurysm Maternal Grandfather Tobin Wombacher Allergy (severe) Mother Symone Shankar Arthritis Mother Symone Calhounger Cancer Mother Symone Heavinashger Depression Mother Symone Heavinashger Hyperlipidemia Mother Symone Heavinashger Hypertension Mother Symone Heavinashger Depression Mother's Sister Chitra Alexander Alzheimer's disease Neg Hx Anesthesia problems Neg Hx Relation Name Status Comments Brother 1 Griffin Heuberger Brother 2 Mark Heavinashger Father Kenny Heavinashger Father's Brother [place] Heavinashger Maternal Grandfather Tobin Wombacher Mother Symone Heuberger Mother's Sister Chitra Alexander Social History Tobacco Use Types Packs/Day Years Used Date Smoking Tobacco: Every Day Cigarettes 1 58.4 Started: 1967 Smokeless Tobacco: Never Tobacco Cessation:Ready to Q [...] on file Legal Sex Female 12:54 PM JACKHAMMER OPERATOR Gender Identity Female 03/07/2020 6:08 PM CDT Sexual Orientation Not on file 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 Not on file Not on f ile [...] 11/22/2024 2:19 PM CDT Plan of Treatment Health Maintenance Due Date Last Done Comments Covid-19 Vaccine ( season) 2024 05/20/2024, 04/10/2023, 04/03/2022, Additional history exists Well Visit 65+ 02/25/2025 02/26/2024, 01/28/2024 Breast Cancer Screening-Mammogram 04/12/2025 Postponed from 1950 (Patient declined, but will receive in the future) DTaP/Tdap/Td Vaccine (2 - Td or Tdap) 06/28/2025 04/06/2015 Postponed from 04/06/2025 (Insurance / Financial) Zoster Vaccine (2 of 2) 07/06/2025 02/01/2018 Post poned from 03/29/2018 (Insurance / Financial) Depression Screening 10/04/2025 10/04/2024, 07/06/2024, 07/06/2024 Fall Risk Assessment 10/04/2025 10/04/2024, 03/01/20 24 Pneumococcal vaccine 65+ (1 of 2 - PCV) 10/04/2025 Postponed from 1969 (Patient declined, but will receive in the future) Osteoporosis Screening-Bone Density Scan 08/01/2026 08/01/2024 Colon Cancer Screening-DNA Stool 07/15/2027 07/15/2024 Hepatitis C Screening Completed 02/18/2024, 018 Influenza Vaccine Completed 05/23/2024, , 04/10/2023, Additional [...] HM DEXA SCAN Routine 08/01/2024 3:06 PM JACKHAMMER OPERATOR STOOL DNA COLOGUARD Routine 07/15/2024 9:50 AM JACKHAMMER OPERATOR Colon cancer screening HEPATITIS C ANTIBODY Routine [...] by: Mecca Young M.D. Darrian Martinez MD [facility] PROCEDURES Final R esult * XR Spine Thoracic 3 Vw (10/04/2024 1:43 PM CDT) Anatomical Region Laterality Modality Spine N/A Digital Radiogra phy 10/04/2024 9:37 PM CDT Narrative 10/04/2024 [...] signed by Linda GOODWIN T: Report ID: [id number] Reading Location: [place] [address] Procedure Note Stacia Henning MD - 10/04/2024 [...] 9:43 PM - Electronically signed by Linda Warren: 10/04/2024 9:43 PM T: Report ID: [id number] Reading Location: [id number] Joel Almonte MD IMG XR PROCEDURES Final Res ult * HM DEXA SCAN (08/01/2024 3:06 PM JACKHAMMER OPERATOR) Historical Provider HEALTH MAINTENANCE Final Result * Stool DNA - Cologuard (07/15/2024 9:50 AM JACKHAMMER OPERATOR) Stool DNA - Cologuard Negative Negative [facility] (CLIA #:[id number]) Comment: NEGATIVE TEST RESULT. A negative Cologuard [...] screened with both Cologuard and colonoscopy. (Jamaal T. et al, N Engl J Med 2014;370(14):5461-2100) The normal value (reference range) for this assay is negative. COLOGUARD RE-SCREENING RECOMMENDATION: Periodic colorectal cancer screening is an important part of preventive healthcare for asymptomatic individuals at average risk for colorectal cancer. Following a negative Cologuard result, the [place] Cancer Society and U.S. Multi-Society Task Force screening guidelines recommend a Cologuard re-screening interval of 3 years. References: [place] [employer] Society Guideline for Colorectal Cancer Screening: https://www.cancer.org/cancer/wkvry-kkonzt-bfwcjr/tmlgtsoie-tnktqjrvz-hzbjnlj/ac s-rec ommendations.html.; Yg LOCO, Daryl QUIÑONEZ, [place], Colorectal Cancer Screening: Recommendations for Physicians and Patients from the U.S. Multi-Society Task Force on Colorectal Cancer Screening , Am J Gastroenterology 2017; 112:8950-6410. TEST DESCRIPTION: Composite algorithmic analysis of stool [...] Ledezma et al, N Engl J Med 2014;370(14):4848-6839.) Cologuard may produce a false negative or false positive result (no colorectal cancer or precancerous polyp present at colonoscopy follow up). A negative Cologuard test result does not guarantee the absence of CRC or advanced adenoma (pre-cancer). The current Cologuard screening interval is every 3 years. ([place] Cancer Society and U.S. Multi-Society Task Force). Cologuard performance data in a 10,000 patient pivotal study using colonoscopy as the reference method can be accessed at the following location: www.[employer]/results. Additional description of the Cologuard test process, warnings and precautions can be found at www.[employer]riv[employer].com. Stool 07/15/2024 9:50 AM JACKHAMMER OPERATOR 07/16/2024 1:15 PM JACKHAMMER OPERATOR us Joel Almonte MD LAB BODY FLUIDS AND STOOLS ORDERABLES Final Result [employer] (CLIA #:[id number]) [address] [address] * (ABNORMAL) Hepatitis C antibody Blood (02/18/2024 [...] - GENERAL OR DERABLES Final Result [facility] Department [place] [address] from Last 3 Months or Most Recently Relevant to Health Maintenance Insurance MEDICARE AETNA SENIOR SUPPLEMENT MEDICARE AETNA SENIOR SUPPLEMENT Advance Directives For more information, please contact: [phone] * Full Code (Latest Code Status on File) Date Activated Date Inactivated Comments 02/18/2024 4:37 PM 03/01/2024 6:59 PM Care Teams Flatbed Owner Operator Relationship Specialty Start Date End Date Joel Almonte MD [address] [facility] [address] [place] [address] PCP - General Family Medicine 07/25/24 Aden Siddiqui MD [address] DEPT OPHTHALMOLOGY, [facility] [address] [place] [address] Surgeon Ophthalmology 08/07/23 Rae Cuellar NP [address] [facility] [address] [place] [address] Nurse Practitioner Nurse Practitioner 07/06/24 Darrian Martinez MD [address] [facility] [address] [address] [place] [address] Referring Physician Thoracic Surgery 07/06/24
--- NOTE | 2024-12-08 14:11 | WPDSIXMINUTE ---
Six Minute Walk Procedure Procedure Performed Pulmonary Stress Test (6 min walk) Six Minute Walk Six Minute Walk: This is a 6 minute walk test. The test was performed and interpreted in accordance with the 2014 ERS/ATS task force guidelines. Findings: The patient's resting room air oxygen saturation measured by pulse oximetry was 96%, the heart rate was 90 bpm, and the modified Ian dyspnea score was 0. Patient ambulated for 335 meters and oxygen saturation remained 92 to 94%. At the end of the study the heart rate was 103 bpm and the modified Ian dyspnea score was 0.5. The patient did not qualify for supplemental oxygen at rest or with ambulation. There are no prior studies for comparison.
== END 2024-12-08 12:49 | disposition home or self-care (01) ==
LOC: ANHPFT 12:49
PROVIDERS: PCP Family Medicine; Visit Provider Internal Medicine Pulmonary Disease
DX: J44.89 Other specified chronic obstructive pulmonary disease (principal)
CPT/HCPCS: 94618

== ENCOUNTER 2025-01-19 10:05 | Outpatient (CLI) | payer MEDICARE, SELFPAY ==
--- NOTE | ~2025-01-19 | MR_ITS ---
EXAMINATION: MR lumbar spine wo con DATE: 01/19/2025 10:33 INDICATION: Chronic midline low back pain TECHNIQUE: Magnetic resonance imaging (MRI) of the lumbar spine was performed without intravenous con trast. Sequences included sagittal T2-weighted FSE, sagittal T2-weighted FS FSE, sagittal T1-weighted FSE, and axial T2-weighted FSE. COMPARISON: None FINDINGS: 17 degrees lumbar levoscoliosis. 2 mm retrolisthesis L1 on L2 and L2 on L3 and 3 mm anterolisthesis L 4 on L5. Vertebral body heights are normal. Severe right-sided prominent disc height loss at L2-L3 wi th associated fibrovascular degenerative endplate changes. Severe left-sided disc height loss at T12- L1 and L1-L2 with additional fibrovascular and fibrofatty degenerative endplate changes. Moderate dis c height loss with fibrofatty degenerative endplate changes at T11-T12. Marrow signal is otherwise un remarkable. Additional moderate disc height loss at L4-L5 and mild to moderate right-sided predominan t disc height loss at L2-L3. Mild disc height loss at L5-S1. The conus medullaris terminates at L1-L2 . There is normal signal in the caudal spinal cord. Paravertebral soft tissues are unremarkable. The following disc levels are specifically discussed: T12-L1: Disc is bulging with annular fissure. There is moderate right and severe left facet joint ost eoarthritis. There is mild right and mild to moderate left neural foraminal stenosis. There is no aye tral canal stenosis. L1-L2: Disc is bulging with annular fissure and superimposed left subarticular zone disc extrusion wi th disc material extending up to 8 mm caudal to the level of the superior endplate of L2. There is mi ld left and moderate right facet joint osteoarthritis. There is moderate left and mild to moderate ri ght neural foraminal stenosis. There is mild central canal stenosis. L2-L3: Disc is bulging with superimposed annular fissure and broad-based disc extrusion extending fro m the left paracentral zone to the right foraminal zone with disc material extending couple 4 mm caud al to the level of the superior endplate of L3. There is mild left and moderate right facet joint ost eoarthritis. There is mild left and moderate right neural foraminal stenosis. There is mild central c anal stenosis with moderate narrowing of the right lateral recess. L3-L4: Disc is bulging. There is mild left and moderate right facet joint osteoarthritis. There is mi ld to moderate bilateral neural foraminal stenosis. There is mild central canal stenosis. L4-L5: Disc is bulging with annular fissure and small central disc extrusion with disc bulge extendin g up to 3 mm cephalad to the level of the inferior endplate of L4. There is mild left and severe righ t facet joint osteoarthritis. There is mild right and mild to moderate left neural foraminal stenosis . There is mild central canal stenosis. L5-S1: Disc is bulging with annular fissure at the left foraminal zone.. There is moderate right and severe left facet joint osteoarthritis. There is mild right and mild to moderate left neural foramina l stenosis. There is no central canal stenosis. IMPRESSION: 1. 17 degrees lumbar levoscoliosis with severe spondylosis. Reviewed, dictated and finalized at location A.
== END 2025-01-19 10:06 | disposition home or self-care (01) ==
PROVIDERS: PCP Family Medicine; Visit Provider Family Medicine
DX: M41.86 Other forms of scoliosis, lumbar region (principal); M43.06 Spondylolysis, lumbar region; M54.42 Lumbago with sciatica, left side; G89.29 Other chronic pain
CPT/HCPCS: 72148

== ENCOUNTER 2025-02-10 09:30 | Outpatient (RCR) | payer MEDICARE, SELFPAY | END 2025-02-14 10:13 | disposition home or self-care (01) | LOC: ANHCPREHAB 09:30 | PROVIDERS: PCP Family Medicine | DX: J42 Unspecified chronic bronchitis (principal) | CPT/HCPCS: 94625 ==